=== PATIENT | male | born 1945 | race Caucasian/White ===

== ENCOUNTER 2017-07-05 15:09 | Observation (INO) | payer MEDICARE ==
[~2017-07-05] VITALS: Ht 175.3 cm; Wt 82.2 kg
[~2017-07-05 15:09] MED LIST: ALBU90OI INH; LISI20 PO; MAJOR-PREP HEMO57 G1 PR; METO50 PO; PANT40 PO; SACC250C PO
[2017-07-05 16:20] LABS: Calcium, Ionized (POC) 1.08 mmol/L (1.10-1.46); Chloride (POC) 89 mmol/L (98-108); Glucose (ISTAT POC) >700 mg/dL (70-99); Hemoglobin (POC) 12.2 g/dL (13.5-17.5); Potassium (POC) 5.1 mmol/L (3.5-5.5); Sodium (POC) 124 mmol/L (135-148); Total CO2 (POC) 24 mmol/L (21-32)
[2017-07-05 16:23] LABS: Source, Urine Clean Catch
[2017-07-05] MEDS ORDERED: METF500 PO (16:23)
[2017-07-05] MEDS ORDERED: CREON DR 24,001 EACH PO (16:23)
[2017-07-05 16:28] LABS: BASOPHILS ABSOLUTE AUTO 0.01 K/mm3 (0.00-0.23); BASOPHILS PERCENT AUTO 0 % (0-2); EOSINOPHILS ABSOLUTE AUTO 0.07 K/mm3 (0.00-0.68); EOSINOPHILS PERCENT AUTO 1 % (0-6); Hematocrit 34.3 % (37.0-53.0); Hemoglobin 12.2 g/dL (13.5-17.5); IMMATURE GRAN ABSOLUTE AUTO 0.02 K/mm3 (0.00-0.10); IMMATURE GRAN PERCENT AUTO 0 % (0-1); LYMPHOCYTES ABSOLUTE AUTO 1.32 K/mm3 (0.84-5.20); LYMPHOCYTES PERCENT AUTO 22 % (21-46); MONOCYTES ABSOLUTE AUTO 0.88 K/mm3 (0.16-1.47); MONOCYTES PERCENT AUTO 15 % (4-13); Mean Corpuscular HGB 30.8 pg (26.0-34.0); Mean Corpuscular HGB Conc 35.6 g/dL (31.5-36.5); Mean Corpuscular Volume 87 fL (80-100); Mean Platelet Volume 12.2 fL (9.1-12.4); NEUTROPHILS ABSOLUTE AUTO 3.69 K/mm3 (1.96-9.15); NEUTROPHILS PERCENT AUTO 62 % (41-73); Platelet Count 140 K/mm3 (150-400); RDW Coefficient Variation 13.2 % (11.7-14.2); RDW Standard Deviation 41.4 fL (35.1-46.3); Red Blood Cell Count 3.96 M/mm3 (4.30-5.90); White Blood Cell Count 5.99 K/mm3 (4.00-11.30)
[2017-07-05 16:29] LABS: Appearance, Urine Clear (Clear); Bilirubin, Urine Neg (Neg); Blood, Urine Neg (Neg); Color, Urine Yellow (P-Yellow); Glucose Qualitative, Urine 4+ (Neg); Ketones, Urine Neg (Neg); Leukocyte Esterase, Urine Neg (Neg); Nitrite, Urine Neg (Neg); Protein, Urine Neg (Neg); Urobilinogen, Urine NORM (Normal)
[2017-07-05 16:52] LABS: Magnesium, Blood 1.5 mg/dL (1.6-2.4)
[2017-07-05 17:08] LABS: Beta-hydroxybutyrate 5.2 mg/dL (0.2-2.8)
[2017-07-05 17:09] LABS: Alanine Aminotransfer (ALT/SGP 21 U/L (12-78); Albumin, Blood 3.6 g/dL (3.4-5.0); Albumin/Globulin Ratio 0.8 (0.8-1.8); Alk Phos 183 U/L (50-136); Anion Gap 7 mmol/L (6-16); Aspartate Aminotrans (AST/SGOT 18 U/L (12-37); Bilirubin, Total 0.5 mg/dL (0.1-1.0); Blood Urea Nitrogen 34 mg/dL (8-24); Bun/Creatinine Ratio 37.2 (12.0-20.0); CO2, Blood 26 mmol/L (21-32); Calcium, Blood 9.4 mg/dL (8.5-10.1); Chloride, Blood 90 mmol/L (98-108); Creatinine, Blood 0.92 mg/dL (0.60-1.20); Globulin, Blood 4.6 g/dL (2.2-4.0); Glomerular Filtration Rate >60 (60-); Glucose, Blood 756 mg/dL (70-99); Potassium, Blood 4.9 mmol/L (3.5-5.5); Sodium, Blood 123 mmol/L (136-145); Total Protein, Blood 8.2 g/dL (6.4-8.2)
[2017-07-05 19:26] LABS: Glucose, Blood 456 mg/dL (70-99)
[2017-07-05 23:54] LABS: Glucose, Blood 524 mg/dL (70-99)
[2017-07-06 06:26] LABS: Alanine Aminotransfer (ALT/SGP 20 U/L (12-78); Albumin, Blood 2.9 g/dL (3.4-5.0); Albumin/Globulin Ratio 0.7 (0.8-1.8); Alk Phos 139 U/L (50-136); Anion Gap 6 mmol/L (6-16); Aspartate Aminotrans (AST/SGOT 15 U/L (12-37); Bilirubin, Total 0.4 mg/dL (0.1-1.0); Blood Urea Nitrogen 27 mg/dL (8-24); Bun/Creatinine Ratio 34.4 (12.0-20.0); CO2, Blood 27 mmol/L (21-32); Calcium, Blood 8.7 mg/dL (8.5-10.1); Chloride, Blood 102 mmol/L (98-108); Creatinine, Blood 0.79 mg/dL (0.60-1.20); Glomerular Filtration Rate >60 (60-); Glucose, Blood 265 mg/dL (70-99); Potassium, Blood 3.9 mmol/L (3.5-5.5); Sodium, Blood 135 mmol/L (136-145); Total Protein, Blood 6.9 g/dL (6.4-8.2)
[2017-07-06] MEDS ORDERED: GABA100 PO (10:18)
[2017-07-06] MEDS ORDERED: GLIP10 PO (10:19)
[2017-07-06] MEDS ORDERED: BASAGLAR K100 UNIT/1 SC (10:20)
[2017-07-06] MEDS ORDERED: PRAVASTATIN SOD10 MG PO (10:20)
== END 2017-07-06 11:50 | disposition home or self-care (01) ==
LOC: ER 15:09 → MEDS 15:10 → ENPENDDIS 07-06 09:57 → MEDS 07-06 11:50
PROVIDERS: Emergency Medicine; Internal Medicine
DX: E11.65 Type 2 diabetes mellitus with hyperglycemia (principal); E87.1 Hypo-osmolality and hyponatremia; E83.42 Hypomagnesemia; I10 Essential (primary) hypertension; I48.91 Unspecified atrial fibrillation; K70.30 Alcoholic cirrhosis of liver without ascites; I47.1 Supraventricular tachycardia; Z98.890 Other specified postprocedural states; Z80.3 Family history of malignant neoplasm of breast; Z87.891 Personal history of nicotine dependence
CPT/HCPCS: 36415; 71046; 80047; 80053; 81003; 82010; 82947; 83036; 83735; 85014; 85025; 93005; 93010; 96365; 96366; 96372; 99285; G0378; J1650; J1815; J3475; J7030

== ENCOUNTER 2017-08-09 12:43 | Emergency (ER) | payer MEDICARE ==
[~2017-08-09] VITALS: Ht 177.8 cm; Wt 81.7 kg
[~2017-08-09 12:43] MED LIST changes: +BASAGLAR K100 UNIT/1 SC; +CREON DR 24,001 EACH PO; +GABA100 PO; +GLIP10 PO; +GLIP10ER PO; +LIDOCARE1 EACH TP; +METF500 PO; +NYST100000; +Norco 5-325 Ta1 EACH PO; +PRAVASTATIN SOD10 MG PO; +ROBITUSSIN COU237 ML PO; +Zithromax250 MG PO
[2017-08-09] MEDS ORDERED: Diflucan100 MG PO (14:18)
[2017-08-09] MEDS ORDERED: Norco 5-325 Ta1 EACH PO (14:18)
== END 2017-08-09 14:33 | disposition home or self-care (01) ==
LOC: ER 12:43
DX: J02.9 Acute pharyngitis, unspecified (principal); E11.9 Type 2 diabetes mellitus without complications; I48.91 Unspecified atrial fibrillation; I10 Essential (primary) hypertension; Z87.891 Personal history of nicotine dependence; Z79.899 Other long term (current) drug therapy; Z79.4 Long term (current) use of insulin
CPT/HCPCS: 99283

== ENCOUNTER → 2017-08-11 | Outpatient (CLI) | payer MEDICARE ==
[~2017-08-11] MED LIST changes: +DIPH50 PO; +Diflucan100 MG PO
[2017-08-11 16:18] LABS: BASOPHILS ABSOLUTE AUTO 0.03 K/mm3 (0.00-0.23); BASOPHILS PERCENT AUTO 0 % (0-2); EOSINOPHILS PERCENT AUTO 1 % (0-6); Hematocrit 35.5 % (37.0-53.0); IMMATURE GRAN ABSOLUTE AUTO 0.07 K/mm3 (0.00-0.10); IMMATURE GRAN PERCENT AUTO 1 % (0-1); LYMPHOCYTES ABSOLUTE AUTO 1.86 K/mm3 (0.84-5.20); LYMPHOCYTES PERCENT AUTO 25 % (21-46); MONOCYTES ABSOLUTE AUTO 1.04 K/mm3 (0.16-1.47); MONOCYTES PERCENT AUTO 14 % (4-13); Mean Corpuscular HGB 31.7 pg (26.0-34.0); Mean Corpuscular HGB Conc 33.8 g/dL (31.5-36.5); Mean Corpuscular Volume 94 fL (80-100); Mean Platelet Volume 10.6 fL (9.1-12.4); NEUTROPHILS ABSOLUTE AUTO 4.36 K/mm3 (1.96-9.15); NEUTROPHILS PERCENT AUTO 59 % (41-73); Platelet Count 213 K/mm3 (150-400); RDW Coefficient Variation 14.7 % (11.7-14.2); RDW Standard Deviation 50.6 fL (35.1-46.3); Red Blood Cell Count 3.79 M/mm3 (4.30-5.90); White Blood Cell Count 7.46 K/mm3 (4.00-11.30)
[2017-08-11 16:30] LABS: Alanine Aminotransfer (ALT/SGP 21 U/L (12-78); Albumin, Blood 3.3 g/dL (3.4-5.0); Albumin/Globulin Ratio 0.7 (0.8-1.8); Alk Phos 269 U/L (40-126); Anion Gap 7 mmol/L (6-16); Aspartate Aminotrans (AST/SGOT 27 U/L (12-37); Bilirubin, Total 0.6 mg/dL (0.1-1.0); Blood Urea Nitrogen 18 mg/dL (8-24); Bun/Creatinine Ratio 17.8 (12.0-20.0); CO2, Blood 29 mmol/L (21-32); Calcium, Blood 9.2 mg/dL (8.5-10.1); Chloride, Blood 103 mmol/L (98-108); Creatinine, Blood 1.01 mg/dL (0.60-1.20); Globulin, Blood 4.6 g/dL (2.2-4.0); Glomerular Filtration Rate >60 (60-); Glucose, Blood 131 mg/dL (70-99); Potassium, Blood 4.3 mmol/L (3.5-5.5); Sodium, Blood 139 mmol/L (136-145); Total Protein, Blood 7.9 g/dL (6.4-8.2)
== END | disposition home or self-care (01) ==
LOC: LAB EV 16:12 → LAB SHORT 16:12
PROVIDERS: Physician Assistant
DX: J18.1 Lobar pneumonia, unspecified organism (principal); J02.9 Acute pharyngitis, unspecified; R74.8 Abnormal levels of other serum enzymes
CPT/HCPCS: 80053; 82977; 85025; 87070

== ENCOUNTER 2017-08-13 16:14 | Emergency (ER) | payer MEDICARE ==
[~2017-08-13] VITALS: Ht 172.7 cm; Wt 79.4 kg
[~2017-08-13 16:14] MED LIST changes: -DIPH50 PO
[2017-08-13 16:47] LABS: BASOPHILS ABSOLUTE AUTO 0.02 K/mm3 (0.00-0.23); BASOPHILS PERCENT AUTO 0 % (0-2); EOSINOPHILS ABSOLUTE AUTO 0.09 K/mm3 (0.00-0.68); EOSINOPHILS PERCENT AUTO 1 % (0-6); Hemoglobin 11.3 g/dL (13.5-17.5); IMMATURE GRAN ABSOLUTE AUTO 0.07 K/mm3 (0.00-0.10); IMMATURE GRAN PERCENT AUTO 1 % (0-1); LYMPHOCYTES ABSOLUTE AUTO 1.83 K/mm3 (0.84-5.20); LYMPHOCYTES PERCENT AUTO 20 % (21-46); MONOCYTES ABSOLUTE AUTO 1.04 K/mm3 (0.16-1.47); MONOCYTES PERCENT AUTO 11 % (4-13); Mean Corpuscular HGB 31.1 pg (26.0-34.0); Mean Corpuscular HGB Conc 32.3 g/dL (31.5-36.5); Mean Corpuscular Volume 96 fL (80-100); Mean Platelet Volume 9.9 fL (9.1-12.4); NEUTROPHILS PERCENT AUTO 67 % (41-73); Platelet Count 239 K/mm3 (150-400); RDW Coefficient Variation 14.4 % (11.7-14.2); RDW Standard Deviation 51.3 fL (35.1-46.3); Red Blood Cell Count 3.63 M/mm3 (4.30-5.90); White Blood Cell Count 9.25 K/mm3 (4.00-11.30)
[2017-08-13 17:05] LABS: Anion Gap 10 mmol/L (6-16); Blood Urea Nitrogen 16 mg/dL (8-24); Bun/Creatinine Ratio 18.9 (12.0-20.0); CO2, Blood 25 mmol/L (21-32); Chloride, Blood 108 mmol/L (98-108); Creatinine, Blood 0.85 mg/dL (0.60-1.20); Glomerular Filtration Rate >60 (60-); Glucose, Blood 73 mg/dL (70-99); Potassium, Blood 3.7 mmol/L (3.5-5.5); Sodium, Blood 143 mmol/L (136-145)
[2017-08-13] MEDS ORDERED: DIPH50 PO (17:25)
== END 2017-08-13 17:41 | disposition home or self-care (01) ==
LOC: ER 16:14
PROVIDERS: Emergency Medicine
DX: J02.9 Acute pharyngitis, unspecified (principal); G25.89 Other specified extrapyramidal and movement disorders; E11.9 Type 2 diabetes mellitus without complications; I48.91 Unspecified atrial fibrillation; I10 Essential (primary) hypertension; Z87.891 Personal history of nicotine dependence; Z79.899 Other long term (current) drug therapy; Z79.4 Long term (current) use of insulin
CPT/HCPCS: 36415; 70491; 80048; 85025; 99284; Q9967

== ENCOUNTER 2017-09-12 22:36 | Inpatient (IN) | payer MEDICARE, OTHER, SELFPAY ==
[~2017-09-12] VITALS: Ht 177.8 cm; Wt 75.3 kg
[~2017-09-12 22:36] MED LIST changes: +DIPH50 PO; -NYST100000; +NYST100000 PO
[2017-09-13 00:39] LABS: BASOPHILS ABSOLUTE AUTO 0.03 K/mm3 (0.00-0.23); BASOPHILS PERCENT AUTO 1 % (0-2); EOSINOPHILS ABSOLUTE AUTO 0.09 K/mm3 (0.00-0.68); EOSINOPHILS PERCENT AUTO 1 % (0-6); Hematocrit 35.9 % (37.0-53.0); Hemoglobin 11.8 g/dL (13.5-17.5); IMMATURE GRAN PERCENT AUTO 0 % (0-1); LYMPHOCYTES PERCENT AUTO 30 % (21-46); MONOCYTES ABSOLUTE AUTO 0.75 K/mm3 (0.16-1.47); MONOCYTES PERCENT AUTO 12 % (4-13); Mean Corpuscular HGB 31.1 pg (26.0-34.0); Mean Corpuscular HGB Conc 32.9 g/dL (31.5-36.5); Mean Corpuscular Volume 95 fL (80-100); NEUTROPHILS ABSOLUTE AUTO 3.53 K/mm3 (1.96-9.15); NEUTROPHILS PERCENT AUTO 56 % (41-73); Platelet Count 129 K/mm3 (150-400); RDW Coefficient Variation 13.9 % (11.7-14.2); Red Blood Cell Count 3.79 M/mm3 (4.30-5.90)
[2017-09-13 01:02] LABS: Alanine Aminotransfer (ALT/SGP 22 U/L (12-78); Albumin, Blood 3.7 g/dL (3.4-5.0); Alk Phos 158 U/L (50-136); Anion Gap 8 mmol/L (6-16); Aspartate Aminotrans (AST/SGOT 28 U/L (12-37); Bilirubin, Total 0.5 mg/dL (0.1-1.0); Blood Urea Nitrogen 56 mg/dL (8-24); Bun/Creatinine Ratio 20.7 (12.0-20.0); CO2, Blood 26 mmol/L (21-32); Calcium, Blood 8.6 mg/dL (8.5-10.1); Chloride, Blood 106 mmol/L (98-108); Ethanol (Alcohol), Blood, Med <3 mg/dL; Globulin, Blood 3.6 g/dL (2.2-4.0); Glomerular Filtration Rate 25 (60-); Glucose, Blood 170 mg/dL (70-99); Potassium, Blood 4.6 mmol/L (3.5-5.5); Sodium, Blood 140 mmol/L (136-145); Total Protein, Blood 7.3 g/dL (6.4-8.2)
[2017-09-13] MEDS ORDERED: DIAZ5 PO (04:16)
[2017-09-13] MEDS ORDERED: DIAZ10 PO (04:17)
[2017-09-13] MEDS ORDERED: Lisinopril2.5 MG PO (04:19)
[2017-09-13] MEDS ORDERED: PANT40 PO (04:22)
[2017-09-13] MEDS ORDERED: Keppra100 MG/1 M PO (06:30)
[2017-09-13] MEDS ORDERED: MAGOXI400 PO (06:32)
[2017-09-13] MEDS ORDERED: TETRABENAZINE12.5 MG PO (11:45)
[2017-09-13] MEDS ORDERED: CREON DR 24,001 EACH PO (11:49)
[2017-09-13] MEDS ORDERED: MELA3 PO (11:52)
[2017-09-13] MEDS ORDERED: INSDET100 SC (11:54)
[2017-09-13 13:37] LABS: Hematocrit 38.5 % (37.0-53.0); Hemoglobin 12.6 g/dL (13.5-17.5); Mean Corpuscular HGB 30.4 pg (26.0-34.0); Mean Corpuscular HGB Conc 32.7 g/dL (31.5-36.5); Mean Corpuscular Volume 93 fL (80-100); Mean Platelet Volume 11.8 fL (9.1-12.4); Platelet Count 145 K/mm3 (150-400); RDW Coefficient Variation 13.9 % (11.7-14.2); RDW Standard Deviation 47.5 fL (35.1-46.3); Red Blood Cell Count 4.14 M/mm3 (4.30-5.90); White Blood Cell Count 4.64 K/mm3 (4.00-11.30)
[2017-09-13 13:53] LABS: Albumin, Blood 3.8 g/dL (3.4-5.0); Bilirubin, Total 0.6 mg/dL (0.1-1.0); Calcium, Blood 9.3 mg/dL (8.5-10.1); Creatinine, Blood 1.96 mg/dL (0.60-1.20); Globulin, Blood 3.9 g/dL (2.2-4.0); Total Protein, Blood 7.7 g/dL (6.4-8.2)
[2017-09-13 19:16] LABS: Bilirubin, Urine Neg (Neg); Blood, Urine Neg (Neg); Glucose Qualitative, Urine Neg (Neg); Ketones, Urine Neg (Neg); Leukocyte Esterase, Urine 1+ (Neg); Nitrite, Urine Neg (Neg); Protein, Urine Neg (Neg); Urobilinogen, Urine NORM (Normal)
[2017-09-13 19:26] LABS: Appearance, Urine Clear (Clear); Color, Urine Yellow (P-Yellow)
[2017-09-13 19:27] LABS: Hyaline Casts 0-2 /lpf (0-2)
[2017-09-13 19:28] LABS: Bacteria Not Seen /hpf; Red Blood Cells, Urine Not Seen /hpf (0-2); Squamous Epithelial Cells Few /hpf (Few)
[2017-09-13 19:35] LABS: U Amphetamine Screen Not Detected; U Barbituate Screen Not Detected; U Benzodiazapine Screen DETECTED; U Buprenorphine Screen Not Detected; U Cannabinoids Screen Not Detected; U Cocaine Screen Not Detected; U Methadone Screen Not Detected; U Methamphetamine Screen Not Detected; U Opiates Screen Not Detected; U Oxycodone Screen Not Detected; U Phencyclidine Screen Not Detected; U Propoxyphene Screen Not Detected
[2017-09-14 04:00] LABS: Bun/Creatinine Ratio 28.7 (12.0-20.0); Calcium, Blood 8.7 mg/dL (8.5-10.1); Creatinine, Blood 1.5 mg/dL (0.60-1.20); Potassium, Blood 5.2 mmol/L (3.5-5.5)
[2017-09-15 05:04] LABS: Anion Gap 8 mmol/L (6-16); Blood Urea Nitrogen 32 mg/dL (8-24); Bun/Creatinine Ratio 28.3 (12.0-20.0); CO2, Blood 24 mmol/L (21-32); CPK Creatine Kinase 185 U/L (39-308); Calcium, Blood 8.9 mg/dL (8.5-10.1); Chloride, Blood 111 mmol/L (98-108); Creatinine, Blood 1.13 mg/dL (0.60-1.20); Glomerular Filtration Rate >60 (60-); Glucose, Blood 124 mg/dL (70-99); Potassium, Blood 4.5 mmol/L (3.5-5.5); Sodium, Blood 143 mmol/L (136-145)
[2017-09-16 04:24] LABS: Anion Gap 7 mmol/L (6-16); Blood Urea Nitrogen 17 mg/dL (8-24); Bun/Creatinine Ratio 17.8 (12.0-20.0); CO2, Blood 24 mmol/L (21-32); CPK Creatine Kinase 187 U/L (39-308); Calcium, Blood 8.9 mg/dL (8.5-10.1); Chloride, Blood 110 mmol/L (98-108); Creatinine, Blood 0.96 mg/dL (0.60-1.20); Glomerular Filtration Rate >60 (60-); Glucose, Blood 176 mg/dL (70-99); Potassium, Blood 4.3 mmol/L (3.5-5.5); Sodium, Blood 141 mmol/L (136-145)
[2017-09-18 10:13] LABS: Alanine Aminotransfer (ALT/SGP 19 U/L (12-78); Albumin/Globulin Ratio 0.8 (0.8-1.8); Alk Phos 166 U/L (50-136); Anion Gap 7 mmol/L (6-16); Aspartate Aminotrans (AST/SGOT 22 U/L (12-37); Bilirubin, Total 0.4 mg/dL (0.1-1.0); Blood Urea Nitrogen 7 mg/dL (8-24); Bun/Creatinine Ratio 9.2 (12.0-20.0); CO2, Blood 27 mmol/L (21-32); Calcium, Blood 8.5 mg/dL (8.5-10.1); Chloride, Blood 110 mmol/L (98-108); Creatinine, Blood 0.76 mg/dL (0.60-1.20); Globulin, Blood 3.8 g/dL (2.2-4.0); Glomerular Filtration Rate >60 (60-); Glucose, Blood 165 mg/dL (70-99); Magnesium, Blood 1.7 mg/dL (1.6-2.4); Potassium, Blood 3.8 mmol/L (3.5-5.5); Sodium, Blood 144 mmol/L (136-145); Total Protein, Blood 6.8 g/dL (6.4-8.2)
[2017-09-19] MEDS ORDERED: INSULANPEN SC (12:59)
[2017-09-19] MEDS ORDERED: DOCU100 PO (13:03)
[2017-09-19] MEDS ORDERED: HUMALOG KW200 UNIT/1 SC (13:04)
[2017-09-19] MEDS ORDERED: AUSTEDO6 MG PO (13:05)
[2017-09-19] MEDS ORDERED: Seroquel50 MG PO (13:06)
[2017-09-19] MEDS ORDERED: QUET25 PO (13:06)
[2017-09-23 05:24] LABS: Hemoglobin 11.1 g/dL (13.5-17.5); Mean Corpuscular HGB 30.7 pg (26.0-34.0); Mean Corpuscular HGB Conc 32.6 g/dL (31.5-36.5); Mean Corpuscular Volume 94 fL (80-100); Mean Platelet Volume 11.3 fL (9.1-12.4); Platelet Count 102 K/mm3 (150-400); RDW Coefficient Variation 13.6 % (11.7-14.2); RDW Standard Deviation 47.3 fL (35.1-46.3); Red Blood Cell Count 3.61 M/mm3 (4.30-5.90); White Blood Cell Count 4.39 K/mm3 (4.00-11.30)
[2017-09-23 05:58] LABS: Anion Gap 7 mmol/L (6-16); Blood Urea Nitrogen 20 mg/dL (8-24); Bun/Creatinine Ratio 22.8 (12.0-20.0); CO2, Blood 29 mmol/L (21-32); Calcium, Blood 8.6 mg/dL (8.5-10.1); Chloride, Blood 109 mmol/L (98-108); Creatinine, Blood 0.88 mg/dL (0.60-1.20); Glomerular Filtration Rate >60 (60-); Glucose, Blood 83 mg/dL (70-99); Potassium, Blood 3.7 mmol/L (3.5-5.5); Sodium, Blood 145 mmol/L (136-145)
[2017-09-26 05:48] LABS: Anion Gap 7 mmol/L (6-16); Blood Urea Nitrogen 19 mg/dL (8-24); Bun/Creatinine Ratio 21.8 (12.0-20.0); CO2, Blood 26 mmol/L (21-32); Calcium, Blood 8.3 mg/dL (8.5-10.1); Chloride, Blood 108 mmol/L (98-108); Creatinine, Blood 0.87 mg/dL (0.60-1.20); Glomerular Filtration Rate >60 (60-); Glucose, Blood 132 mg/dL (70-99); Potassium, Blood 4.3 mmol/L (3.5-5.5); Sodium, Blood 141 mmol/L (136-145)
[2017-09-26] MEDS ORDERED: Aspirin EC81 MG PO (12:16)
[2017-09-26] MEDS ORDERED: QUET25 PO ×2 (12:28→13:21)
== END 2017-09-26 14:30 | disposition home health service (06) | DRG 56 ==
LOC: ER 22:36 → MEDS 09-13 01:41 → ICUE 09-13 01:41 → MEDS 09-13 05:54 → ICUE 09-14 01:24 → MEDS 09-16 19:35 → EDPENDDIS 09-19 10:50 → ENPENDDIS 09-19 10:50 → MEDS 09-26 14:30
PROVIDERS: Emergency Medicine; Internal Medicine
DX: G25.5 Other chorea (principal); G93.41 Metabolic encephalopathy; N17.9 Acute kidney failure, unspecified; K70.30 Alcoholic cirrhosis of liver without ascites; I10 Essential (primary) hypertension; Z78.1 Physical restraint status; E11.65 Type 2 diabetes mellitus with hyperglycemia; F10.20 Alcohol dependence, uncomplicated; I48.2 Chronic atrial fibrillation; Z91.14 Patient's other noncompliance with medication regimen
CPT/HCPCS: 36415; 51703; 80048; 80053; 81001; 82390; 82550; 82947; 83735; 84443; 85025; 85027; 87086; 96360; 96361; 97110; 97116; 97161; 99285; G0480; G8978; G8979; J1630; J1650; J2060; J3411; J7030; J7042

== ENCOUNTER 2017-10-09 15:31 | Emergency (ER) | payer MEDICARE, SELFPAY ==
[~2017-10-09] VITALS: Ht 177.8 cm; Wt 78.0 kg
[~2017-10-09 15:31] MED LIST changes: +AUSTEDO6 MG PO; +Aspirin EC81 MG PO; +DIAZ10 PO; +DIAZ5 PO; +DOCU100 PO; +HUMALOG KW200 UNIT/1 SC; +INSDET100 SC; +INSULANPEN SC; +Keppra100 MG/1 M PO; +Lisinopril2.5 MG PO; +MAGOXI400 PO; +MELA3 PO; +QUET25 PO; +Seroquel50 MG PO; +TETRABENAZINE12.5 MG PO
[2017-10-09 16:35] LABS: Calcium, Ionized (POC) 1.07 mmol/L (1.10-1.46); Chloride (POC) 102 mmol/L (98-108); Creatinine (POC) 1.5 mg/dL (0.8-1.3); Glucose (ISTAT POC) 115 mg/dL (70-99); Hemoglobin (POC) 12.2 g/dL (13.5-17.5); Sodium (POC) 144 mmol/L (135-148); Total CO2 (POC) 30 mmol/L (21-32)
== END 2017-10-09 16:48 | disposition home or self-care (01) ==
LOC: ER 15:31
PROVIDERS: Emergency Medicine
DX: S01.01XA Laceration without foreign body of scalp, initial encounter (principal); W18.30XA Fall on same level, unspecified, initial encounter; F90.9 Attention-deficit hyperactivity disorder, unspecified type; Z79.899 Other long term (current) drug therapy; Z79.4 Long term (current) use of insulin; Z79.82 Long term (current) use of aspirin; E11.9 Type 2 diabetes mellitus without complications; Z87.891 Personal history of nicotine dependence
CPT/HCPCS: 80047; 85014; 99283

== ENCOUNTER 2017-10-11 20:16 | Emergency (ER) | payer MEDICARE, OTHER, SELFPAY ==
[~2017-10-11] VITALS: Ht 182.9 cm; Wt 74.8 kg
[2017-10-11 22:57] LABS: Source, Urine Clean Catch
[2017-10-11 23:00] LABS: BASOPHILS ABSOLUTE AUTO 0.02 K/mm3 (0.00-0.23); BASOPHILS PERCENT AUTO 0 % (0-2); EOSINOPHILS ABSOLUTE AUTO 0.01 K/mm3 (0.00-0.68); EOSINOPHILS PERCENT AUTO 0 % (0-6); Hematocrit 34.1 % (37.0-53.0); Hemoglobin 11.3 g/dL (13.5-17.5); IMMATURE GRAN ABSOLUTE AUTO 0.03 K/mm3 (0.00-0.10); IMMATURE GRAN PERCENT AUTO 0 % (0-1); LYMPHOCYTES ABSOLUTE AUTO 1.74 K/mm3 (0.84-5.20); LYMPHOCYTES PERCENT AUTO 23 % (21-46); MONOCYTES ABSOLUTE AUTO 0.45 K/mm3 (0.16-1.47); MONOCYTES PERCENT AUTO 6 % (4-13); Mean Corpuscular HGB Conc 33.1 g/dL (31.5-36.5); Mean Corpuscular Volume 94 fL (80-100); Mean Platelet Volume 10.8 fL (9.1-12.4); NEUTROPHILS ABSOLUTE AUTO 5.37 K/mm3 (1.96-9.15); NEUTROPHILS PERCENT AUTO 71 % (41-73); Platelet Count 146 K/mm3 (150-400); RDW Coefficient Variation 14.7 % (11.7-14.2); RDW Standard Deviation 48.5 fL (35.1-46.3); Red Blood Cell Count 3.64 M/mm3 (4.30-5.90); White Blood Cell Count 7.62 K/mm3 (4.00-11.30)
[2017-10-11 23:01] LABS: Bilirubin, Urine Neg (Neg); Blood, Urine Neg (Neg); Glucose Qualitative, Urine Neg (Neg); Ketones, Urine Neg (Neg); Leukocyte Esterase, Urine Neg (Neg); Nitrite, Urine Neg (Neg); Protein, Urine Neg (Neg); Specific Gravity, Urine 1.005 (1.003-1.022); Urobilinogen, Urine NORM (Normal)
[2017-10-11 23:04] LABS: Appearance, Urine Clear (Clear); Color, Urine Yellow (P-Yellow)
[2017-10-11 23:13] LABS: Alanine Aminotransfer (ALT/SGP 27 U/L (12-78); Albumin/Globulin Ratio 0.8 (0.8-1.8); Alk Phos 253 U/L (50-136); Anion Gap 11 mmol/L (6-16); Aspartate Aminotrans (AST/SGOT 50 U/L (12-37); Bilirubin, Total 0.3 mg/dL (0.1-1.0); Blood Urea Nitrogen 12 mg/dL (8-24); Bun/Creatinine Ratio 12.7 (12.0-20.0); CO2, Blood 26 mmol/L (21-32); Calcium, Blood 7.9 mg/dL (8.5-10.1); Chloride, Blood 106 mmol/L (98-108); Creatinine, Blood 0.95 mg/dL (0.60-1.20); Globulin, Blood 3.7 g/dL (2.2-4.0); Glomerular Filtration Rate >60 (60-); Glucose, Blood 115 mg/dL (70-99); Potassium, Blood 3.8 mmol/L (3.5-5.5); Sodium, Blood 143 mmol/L (136-145); Total Protein, Blood 6.7 g/dL (6.4-8.2)
[2017-10-11] MEDS ORDERED: AUSTEDO6 MG PO (23:18)
== END 2017-10-12 00:15 | disposition home or self-care (01) ==
LOC: ER 20:16
PROVIDERS: Emergency Medicine
DX: S00.01XA Abrasion of scalp, initial encounter (principal); E11.9 Type 2 diabetes mellitus without complications; I48.91 Unspecified atrial fibrillation; I10 Essential (primary) hypertension; Z79.899 Other long term (current) drug therapy; Z79.4 Long term (current) use of insulin; Z79.82 Long term (current) use of aspirin; Z87.891 Personal history of nicotine dependence; W19.XXXA Unspecified fall, initial encounter
CPT/HCPCS: 36415; 70450; 80053; 81003; 82140; 85025; 93005; 93010; 99285-25

== ENCOUNTER 2021-02-17 09:50 | Inpatient (IN) | payer MEDICARE ==
[~2021-02-17] VITALS: Ht 172.7 cm; Wt 100.3 kg
[~2021-02-17 09:50] MED LIST changes: +HUMALOG KW100 UNIT/1 SC; -HUMALOG KW200 UNIT/1 SC
[2021-02-17 10:41] LABS: BASOPHILS PERCENT AUTO 0 % (0-2); EOSINOPHILS ABSOLUTE AUTO 0.02 K/mm3 (0.00-0.68); EOSINOPHILS PERCENT AUTO 1 % (0-6); Hemoglobin 13.9 g/dL (13.5-17.5); IMMATURE GRAN ABSOLUTE AUTO 0.03 K/mm3 (0.00-0.10); IMMATURE GRAN PERCENT AUTO 1 % (0-1); LYMPHOCYTES ABSOLUTE AUTO 0.55 K/mm3 (0.84-5.20); LYMPHOCYTES PERCENT AUTO 19 % (21-46); MONOCYTES ABSOLUTE AUTO 0.53 K/mm3 (0.16-1.47); MONOCYTES PERCENT AUTO 19 % (4-13); Mean Corpuscular HGB Conc 34.8 g/dL (31.5-36.5); Mean Corpuscular Volume 92 fL (80-100); Mean Platelet Volume 11.2 fL (9.1-12.4); NEUTROPHILS PERCENT AUTO 60 % (41-73); RDW Coefficient Variation 14.4 % (11.7-14.2); RDW Standard Deviation 49.2 fL (35.1-46.3); Red Blood Cell Count 4.35 M/mm3 (4.30-5.90); White Blood Cell Count 2.83 K/mm3 (4.00-11.30)
[2021-02-17 10:44] LABS: Platelet Count 92 K/mm3 (150-400)
[2021-02-17 11:02] LABS: Alanine Aminotransfer (ALT/SGP 28 U/L (12-78); Albumin, Blood 2.6 g/dL (3.4-5.0); Albumin/Globulin Ratio 0.7 (0.8-1.8); Alk Phos 147 U/L (50-136); Anion Gap 11 mmol/L (6-16); Aspartate Aminotrans (AST/SGOT 50 U/L (12-37); Bilirubin, Total 1.9 mg/dL (0.1-1.0); Blood Urea Nitrogen 12 mg/dL (8-24); Bun/Creatinine Ratio 12.1 (12.0-20.0); CO2, Blood 30 mmol/L (21-32); Chloride, Blood 95 mmol/L (98-108); Globulin, Blood 3.7 g/dL (2.2-4.0); Glomerular Filtration Rate >60 (60-); Glucose, Blood 99 mg/dL (70-99); Potassium, Blood 3.1 mmol/L (3.5-5.5); Sodium, Blood 136 mmol/L (136-145); Total Protein, Blood 6.3 g/dL (6.4-8.2)
[2021-02-17 11:34] LABS: Source, Urine Catheter
[2021-02-17 11:43] LABS: Appearance, Urine Clear (Clear); Blood, Urine 3+ (Neg); Color, Urine Amber (P-Yellow); Glucose Qualitative, Urine Neg (Neg); Ketones, Urine 2+ (Neg); Leukocyte Esterase, Urine 1+ (Neg); Nitrite, Urine Pos (Neg); Protein, Urine 4+ (Neg); Urobilinogen, Urine 4+ (Normal)
[2021-02-17 11:48] LABS: Adenovirus Not Detected (NOT DETECT); Coronavirus 229E Not Detected (NOT DETECT); Coronavirus HKU1 Not Detected (NOT DETECT); Coronavirus NL63 Not Detected (NOT DETECT); Coronavirus OC43 Not Detected (NOT DETECT); SARS-Cov-2 (COVID-19), BioFire Detected (NOT DETECT)
[2021-02-17 11:50] LABS: Bordetella pertussis Not Detected (NOT DETECT); Chlamydophila pneumoniae Not Detected (NOT DETECT); Human Metapneumovirus Not Detected (NOT DETECT); Human Rhinovirus/Enterovirus Not Detected (NOT DETECT); Influenza A/2009-H1 Not Detected (NOT DETECT); Influenza A/H1 Not Detected (NOT DETECT); Influenza A/H3 Not Detected (NOT DETECT); Influenza B Not Detected (NOT DETECT); Mycoplasma pneumoniae Not Detected (NOT DETECT); Parainfluenza Virus 1 Not Detected (NOT DETECT); Parainfluenza Virus 2 Not Detected (NOT DETECT); Parainfluenza Virus 3 Not Detected (NOT DETECT); Parainfluenza Virus 4 Not Detected (NOT DETECT); Respiratory Syncytial Virus Not Detected (NOT DETECT)
[2021-02-17 11:54] LABS: Bilirubin, Urine 2+ (Neg)
[2021-02-17 11:58] LABS: Amorphous Mod (0-Heavy); Bacteria Few /hpf; Mucus Heavy (0-Heavy); Squamous Epithelial Cells Mod /hpf (Few)
[2021-02-17] MEDS ORDERED: ALBU90OI6 INH (12:36)
[2021-02-17] MEDS ORDERED: Serevent Disku50 MCG IH (12:36)
[2021-02-17] MEDS ORDERED: TAMS.4ER PO (12:36)
[2021-02-17] MEDS ORDERED: INGREZZA40 MG PO (12:37)
--- NOTE | 2021-02-17 15:30 | NUR ---
RECEIVED PT FROM ER VIA [facility]. PT IS AWAKE AND ALERT-ORIENTED TO PERSON AND PLACE. FOLLOWS COMMANDS AND COOPERATIVE WITH CARE. PT IS POOR HISTORIAN. PT SPOUSE REPORTS THAT PT DRANK HIS LAST DRINK 3-4 DAYS AGO. HE NORMAL DRINKS 4-5 SHOTS OF WHISKEY/DAY. UPPER EXTREMITIES NOTED TO BE TREMULOUS, BUT NO HALLUCINATIONS NOTED. PT DENIES PAIN. TEMP 99.9. ECG SHOWS ST WITH FREQUENT PAC/PVC'S AND RUNS OF VT. MAGNESIUM 2 GRAM IVP INFUSING. LUNGS TIGHT AND WHEEZY THROUGH OUT. HARSH, NON PRODUCTIVE COUGH NOTED. SATS>90% ON RA. PT SOB AND TACHYPNEIC WITH MINIMAL EXERTION. PT REPORTS GENERALIZED WEAKNESS, DIARRHEA, AND POOR APPETITE FOR THE LAST 10 DAYS. PT IS INCONTINENT OF URINE AND STOOL. CHANTAL AREA IS EXTREMELY RED AND EXCORTIATED. CHANTAL CARE AND ATTENDS CHANGE COMPLETED. CALAZIME APPLIED TO AFFECTED AREA. WILL CONTINUE TO MONITOR FOR ETOH WITHDRAWL.
--- NOTE | 2021-02-17 17:20 | NUR ---
PT REMAINS HYPERTENSIVE-SEE FLOWSHEET. DR. SMITH UPDATED. MADE AWARE OF CONCERN THAT PT IS AT RISK FOR ASPIRATION- PT MADE NPO, CBG EVERY 6 HOURS. ORDER GIVEN FOR HYDRALAZINE PRN. HYDRALAZINE 10 MG IVP X 1 GIVEN.
--- NOTE | 2021-02-17 19:00 | NUR ---
LEFT ARM IV INFILTRATED. BP REMAINS ELEVATED APRESOLINE WAS GIVEN VIA LEFT ARM IV. EXTENDED DWELL CATHETER PLACED TO RIGHT UPPER ARM. PT CIWA 16-PT MORE TREMULOUS TO BOTH UPPER EXTREMITIES-ESPECIALLY THE LEFT. HOSPITALIST NOTIFIED OF CIWA 16-ORDERS GIVEN FOR ATIVAN. MAGNESIUM LEVEL SENT. PT INCONTINENT OF URINE CHANTAL CARE AND PARTIAL LINEN CHANGE COMPLETED. TEMP 102.9-REPORT GIVEN TO LAN BECKHAM.
--- NOTE | 2021-02-17 20:49 | NUR ---
ASSUMED CARE OF PT AT 1915. REPORT RECEIVED AT BEDSIDE. PT PRESENTS IN BED. ALERT AND ORIENTED. VERY TREMOROUS. INCONTINENT TO URINE. WAS NOT ABLE TO TELL THAT HE HAD VOIDED. HAVE MEDICATED PT WITH 2 MG ATIVAN. WAS 102.9 PER TEMPORAL SCAN. ADMINISTERED TYLENOL. PT HAS SOME COUGH WITH SWALLOW. CALL MADE TO DR FERRELL CONCERNING TEMP. HEART RATE ELEVATION AND INCREASE IN BLOOD PRESSURES. DID OBTAIN ONE SET OF BLOOD CULTURES FROM [facility], AND LACTIC ACID. LAB PERFORMS VENIPUNCTURE FOR SECOND SET. PT'S TEMPERATURE HAS DECREASED TO 101.4. WILL CONTINUE TO MONITOR. WILL REVIEW CHART AND PLAN OF CARE FOR THIS PT.
[2021-02-18 05:44] LABS: BASOPHILS ABSOLUTE AUTO 0.01 K/mm3 (0.00-0.23); BASOPHILS PERCENT AUTO 0 % (0-2); EOSINOPHILS ABSOLUTE AUTO 0.01 K/mm3 (0.00-0.68); EOSINOPHILS PERCENT AUTO 0 % (0-6); Hematocrit 41.3 % (37.0-53.0); Hemoglobin 14.3 g/dL (13.5-17.5); IMMATURE GRAN ABSOLUTE AUTO 0.04 K/mm3 (0.00-0.10); IMMATURE GRAN PERCENT AUTO 1 % (0-1); LYMPHOCYTES ABSOLUTE AUTO 0.97 K/mm3 (0.84-5.20); LYMPHOCYTES PERCENT AUTO 29 % (21-46); MONOCYTES ABSOLUTE AUTO 0.47 K/mm3 (0.16-1.47); MONOCYTES PERCENT AUTO 14 % (4-13); Mean Corpuscular HGB 32.1 pg (26.0-34.0); Mean Corpuscular HGB Conc 34.6 g/dL (31.5-36.5); Mean Corpuscular Volume 93 fL (80-100); Mean Platelet Volume 12.2 fL (9.1-12.4); NEUTROPHILS ABSOLUTE AUTO 1.83 K/mm3 (1.96-9.15); NEUTROPHILS PERCENT AUTO 55 % (41-73); Platelet Count 90 K/mm3 (150-400); RDW Coefficient Variation 14.6 % (11.7-14.2); RDW Standard Deviation 50.1 fL (35.1-46.3); Red Blood Cell Count 4.45 M/mm3 (4.30-5.90); White Blood Cell Count 3.33 K/mm3 (4.00-11.30)
[2021-02-18 06:13] LABS: Alanine Aminotransfer (ALT/SGP 27 U/L (12-78); Albumin, Blood 2.6 g/dL (3.4-5.0); Albumin/Globulin Ratio 0.7 (0.8-1.8); Alk Phos 152 U/L (50-136); Anion Gap 9 mmol/L (6-16); Aspartate Aminotrans (AST/SGOT 49 U/L (12-37); Blood Urea Nitrogen 15 mg/dL (8-24); Bun/Creatinine Ratio 14.4 (12.0-20.0); CO2, Blood 29 mmol/L (21-32); Chloride, Blood 95 mmol/L (98-108); Creatinine, Blood 1.04 mg/dL (0.60-1.20); Globulin, Blood 3.9 g/dL (2.2-4.0); Glomerular Filtration Rate >60 (60-); Glucose, Blood 174 mg/dL (70-99); Magnesium, Blood 2.5 mg/dL (1.6-2.4); Potassium, Blood 3.1 mmol/L (3.5-5.5); Sodium, Blood 133 mmol/L (136-145); Total Protein, Blood 6.5 g/dL (6.4-8.2)
--- NOTE | 2021-02-18 06:30 | NUR ---
PT HAS BEEN ABLE TO SLEEP SOME THIS NIGHT. DOES CONTINUE WITH TREMOROUS MOVEMENTS. HAS BEEN MEDICATED WITH HYDRALAZINE FOR INCREASING BLOOD PRESSURE. OF NOTE: BLOOD PRESSURES HAVE BEEN TRENDING UPWARDS AGAIN. PT HAS LOW GRADE FEVER OF 100.1 THIS MORNING. MAX HAD BEEN 102.9 WITH TEMP NADAR AT 99.0. PT HAS BEEN INCONTINENT TO URINE. DID NOT CALL FOR ASSIST. WILL REVIEW CHART AND PLAN OF CARE FOR THIS PT.
--- NOTE | 2021-02-18 07:57 | NUR ---
PATIENT RESTING IN ROOM, DOES NOT APPEAR IN DISTRESS, AWKES TO STIMULUS AND THEN BACK TO SLEEP EASILY, SBP 180S, MEDICATED WITH PRN HYDRALAZINE, PATIENT SNORING LOUDLY, TEMP 101.0, ROOM, COLD, REMOVED BLANKETS, WCL
--- NOTE | 2021-02-18 11:38 | NUR ---
ST SWALLOW EAL DONE, NO STRAWS MECHANICAL SOFT, THIN LIQUIDS, MEDICATIONS WHOLE WITH APPLESAUCE
--- NOTE | 2021-02-18 14:12 | NUR ---
AT BEDSIDE, HELPFUL WITH CARE
--- NOTE | 2021-02-18 18:25 | NUR ---
PATIENT AWAKE, ALERT AND ORIENTED X3, MINIMAL INTERACTION, HAND TREMORS AT NORMAL BASELINE PER PATIENT, SBP 150-190S HAND TREMORS WHEN BP TAKEN, HEART RATE 90-130, VT, NSR, PVC'S AND PAC'S. DIET MECHANICAL SOFT, ASPIRATION PRECAUTIONS, ASSIST WITH FEEDINGD DRINKING, DENIES N/V. INCONTINENT URINE, ATTENDS ON, CHANTAL AREA SENSITIVE AND EXCORIATED, K+ 3.1 TODAY REPLACED, WILL RELAY TO PM RN, CARLOS
[2021-02-18 21:20] LABS: Bun/Creatinine Ratio 17.6 (12.0-20.0); Calcium, Blood 7.1 mg/dL (8.5-10.1); Creatinine, Blood 1.25 mg/dL (0.60-1.20); Magnesium, Blood 2.4 mg/dL (1.6-2.4); Potassium, Blood 3.2 mmol/L (3.5-5.5)
[2021-02-19 05:51] LABS: Hematocrit 36.6 % (37.0-53.0); Hemoglobin 12.7 g/dL (13.5-17.5); Mean Corpuscular HGB 32.3 pg (26.0-34.0); Mean Corpuscular HGB Conc 34.7 g/dL (31.5-36.5); Mean Corpuscular Volume 93 fL (80-100); Mean Platelet Volume 12.2 fL (9.1-12.4); Platelet Count 71 K/mm3 (150-400); RDW Coefficient Variation 14.5 % (11.7-14.2); RDW Standard Deviation 49.7 fL (35.1-46.3); Red Blood Cell Count 3.93 M/mm3 (4.30-5.90); White Blood Cell Count 2.38 K/mm3 (4.00-11.30)
--- NOTE | 2021-02-19 06:17 | NUR ---
END OF SHIFT SUMMARY: Neuro: pt AOx3 (self, place and situation), cooperative and pleasant. pt does continually shake at baseline d/t tardive dyskinesia. does not complain of pain but does grimaces and moans during repositioning. all extremities can move to commands but very weak and stiff. Resp: Pt remains on 2L nasal cannula. tolerating good. starting to develop barking nonproductive cough, offered suction but denied it. bilateral lung sounds coarse with slight wheezing. Cardiac: pt does have a fever (off/on), gave PRN tylenol which seemed to help. pt also hypertensive, treated with labetolol 10mg twice throughout the night and treated with labetolol 10mg twice throughout the night. generalized edema. GI/: incontinent, has a brief on, perineal, extensive tone care done. brief changes with Q2 hour turns. Skin scaly and fragile. no BM overnight. also attemtped to place condom catheter but condom catheter keeps falling off.
[2021-02-19 06:59] LABS: Anion Gap 8 mmol/L (6-16); Blood Urea Nitrogen 19 mg/dL (8-24); Bun/Creatinine Ratio 18.1 (12.0-20.0); CO2, Blood 27 mmol/L (21-32); Calcium, Blood 6.8 mg/dL (8.5-10.1); Chloride, Blood 99 mmol/L (98-108); Creatinine, Blood 1.05 mg/dL (0.60-1.20); Glomerular Filtration Rate >60 (60-); Glucose, Blood 161 mg/dL (70-99); Potassium, Blood 3.5 mmol/L (3.5-5.5); Sodium, Blood 134 mmol/L (136-145)
--- NOTE | 2021-02-19 08:36 | NUR ---
DR PRESLEY ROUNDING ON PATIENT NOW
--- NOTE | 2021-02-19 13:41 | NUR ---
PT EVAL IN ROOM, PATIENT VERY WEAK, GOAL 30 MINUTES IN CHAIR THREE TIMES A DAY, CORRIDINATE WITH PT WHEN ATTEMPTING PER PT RECOMMENDATION
--- NOTE | 2021-02-19 14:51 | NUR ---
at bedside, reports patient has not walked freely in the house for a month has been declining ambulation and activity. ls coarse and rhonchi, strong cough, clears some congestion, minimal production from cough
--- NOTE | 2021-02-19 16:01 | NUR ---
REPORTED TO DR PRESLEY, REQUEST FOR DUONEBS, LABS AND PRELIMINIARIES, SHALLOW, INCREASED RESPIRATIONS, INCREASED WEAKNESS. CXRAY, ANTIBIOTIC, DUO NEB, AND LABS ORDERED
--- NOTE | 2021-02-19 17:56 | NUR ---
REPORTED TEMP 103.[address] PRESLEY, ORDER TO PLACE PATEL, TEMP NOW 101.1, ICE PACKS TO ARMS AND GROIN, MEDICATED WITH TYLENOL, PATIENT REFUSED PATEL CATHETER PLACEMENT, WILL RELAY TO PM LAN
--- NOTE | 2021-02-19 17:58 | NUR ---
PATIENT ALERT AND ORIENTED X3 VERY FORGETFUL, OBJECTIVE TO INTERVENTIONS AT TIMES, ASSIST WITH FEEDING AND MONITOR SWALLOW, TEMP 103.5 NOW 101.1, LS COARSE RHONCHI, ENCOURAGED COUGH, SCANT SPUTMUN, LIGHT BROWN, 2L NC, CXRAY WORSENED. SBP 140-170, HEART RATE ST 100-130, DENIES CP. INCONTINENT OF BM AND URINE, EXCORIATED SCROTUMN AND CHANTAL, ORDER FOR PATEL CATHETER, PATIENT REFUSED, WILL RELAY TO PM RN, WCTM
[2021-02-20 06:35] LABS: Hemoglobin 12.7 g/dL (13.5-17.5); Mean Corpuscular HGB 31.9 pg (26.0-34.0); Mean Corpuscular HGB Conc 34.3 g/dL (31.5-36.5); Mean Corpuscular Volume 93 fL (80-100); Mean Platelet Volume 12.5 fL (9.1-12.4); Platelet Count 78 K/mm3 (150-400); RDW Coefficient Variation 14.4 % (11.7-14.2); RDW Standard Deviation 49.8 fL (35.1-46.3); Red Blood Cell Count 3.98 M/mm3 (4.30-5.90); White Blood Cell Count 2.15 K/mm3 (4.00-11.30)
--- NOTE | 2021-02-20 06:42 | NUR ---
END OF SHIFT SUMMARY: No major changes overnight. Pt still AOx3 (self, surroundings and situation). Forgetfull and noncompliant at times. Needs reinforcement while providing care, is cooperative once pt is educated about task or care being provided. Agreed to a ruiz catheter to accurately measure pt temperature and help relieve excoriated perineal area. Urine output is royce and clear. 2x BM last night. On 4L nasal cannula, pt continues to cough nonproductively, offered suctioned but refused to use it. Desats down to mid 80's when oxygen cannula not on. Lung sounds are very coarse and wheezy, gets better with breathing exercises. Pt still has low grade fever at around 99.9 - 100.3 F, gave tylenol once, and ice throughout body overnight.
[2021-02-20 06:57] LABS: Anion Gap 7 mmol/L (6-16); Blood Urea Nitrogen 19 mg/dL (8-24); Bun/Creatinine Ratio 21.3 (12.0-20.0); CO2, Blood 28 mmol/L (21-32); Calcium, Blood 7.1 mg/dL (8.5-10.1); Chloride, Blood 99 mmol/L (98-108); Creatinine, Blood 0.89 mg/dL (0.60-1.20); Glomerular Filtration Rate >60 (60-); Glucose, Blood 138 mg/dL (70-99); Sodium, Blood 134 mmol/L (136-145)
--- NOTE | 2021-02-20 08:43 | NUR ---
DR PRESLEY ROUNDED, TO CHANGE S/S TO ACHS, MAG LAB ORDERED, DECADRON AND REMDISIVIR STARTED, HOLDING LOVENOX FOR PLT 78. PATIENT ALERT AND ORIENTED THIS AM, MINIMAL INTERACTION AND THEN BACK TO SLEEP, ONLY ATE 10% OF MEAL, DOES NOT TOLERATE A 90 DEGREE ANGLE FOR EATING VERY LONG AT ALL, CALL LIGHT WITH IN REACH, WCTM
--- NOTE | 2021-02-20 15:13 | NUR ---
PATIENT AND SPOUSE EDUCATED ON THE NEED FOR ASPIRATION PRECAUTIONS, ENCOURAGING DEEP BREATHING, PATIENT DESATING TO 85% AND NOT RECOVERING EASILY, DIET CHANGED TO PUREE AND NECTAR THICK LIQUIDS, PATIENT NON COOPERATIVE, FURTHER EDUCATED THE IMPORTANCE OF THESE INTERVENTION, PATIENT BECOMING WEAKER AND WEAKER, INCREASED OXYGEN NEEDS, LS COARSE, AND SWALLOWING DIFFICULTIES
--- NOTE | 2021-02-20 18:36 | NUR ---
PATIENT CONFUSED AND UNCOOPERATIVE AT TIMES, CALL LIGHT WIHT IN REACH, HARSH COUGH, COARSE LS, CLEARS CONGESTION WITH COUGH, ST DECREASED TO PUREE AND NECTAR THICK LIQUIDS, SBP 150-190S, NO PRN HTN MEDS GIVEN TODAY, BM TODAY, TEMP PATEL IN PLACE, CREAM TO EXCORIATED GROIN, REPOSITIONED Q2H, WILL RELAY TO PM RN
--- NOTE | 2021-02-20 19:30 | NUR ---
ASSUMPTION OF CARE NOTE: PT IS ALERT AND ORIENTED ON 4L NC, VS WNL AT THIS TIME. NO COMPLAINTS AND/OR S/S OF ACUTE DISTRESS NOTED AT TIME OF ASSUMPTION OF CARE. PT ON CONTINUOUS IMPROVEMENT LEAD.
[2021-02-21 05:57] LABS: BASOPHILS PERCENT AUTO 0 % (0-2); EOSINOPHILS PERCENT AUTO 0 % (0-6); Hematocrit 38.8 % (37.0-53.0); Hemoglobin 13.5 g/dL (13.5-17.5); IMMATURE GRAN ABSOLUTE AUTO 0.03 K/mm3 (0.00-0.10); IMMATURE GRAN PERCENT AUTO 2 % (0-1); LYMPHOCYTES ABSOLUTE AUTO 0.34 K/mm3 (0.84-5.20); LYMPHOCYTES PERCENT AUTO 19 % (21-46); MONOCYTES ABSOLUTE AUTO 0.19 K/mm3 (0.16-1.47); MONOCYTES PERCENT AUTO 10 % (4-13); Mean Corpuscular HGB 32.4 pg (26.0-34.0); Mean Corpuscular HGB Conc 34.8 g/dL (31.5-36.5); Mean Corpuscular Volume 93 fL (80-100); Mean Platelet Volume 12.2 fL (9.1-12.4); NEUTROPHILS ABSOLUTE AUTO 1.27 K/mm3 (1.96-9.15); NEUTROPHILS PERCENT AUTO 69 % (41-73); Platelet Count 105 K/mm3 (150-400); RDW Coefficient Variation 14.4 % (11.7-14.2); RDW Standard Deviation 48.8 fL (35.1-46.3); Red Blood Cell Count 4.17 M/mm3 (4.30-5.90); White Blood Cell Count 1.83 K/mm3 (4.00-11.30)
[2021-02-21 06:14] LABS: Anion Gap 9 mmol/L (6-16); Blood Urea Nitrogen 23 mg/dL (8-24); Bun/Creatinine Ratio 31.2 (12.0-20.0); CO2, Blood 26 mmol/L (21-32); Calcium, Blood 7.8 mg/dL (8.5-10.1); Chloride, Blood 100 mmol/L (98-108); Creatinine, Blood 0.74 mg/dL (0.60-1.20); Glomerular Filtration Rate >60 (60-); Glucose, Blood 283 mg/dL (70-99); Phosphorus, Blood 2.6 mg/dL (2.5-4.9); Potassium, Blood 4.5 mmol/L (3.5-5.5); Sodium, Blood 135 mmol/L (136-145)
--- NOTE | 2021-02-21 09:33 | NUR ---
ASSUMED CARE REPORT RECEIVED FROM LAN LAMAS. PT HAS BEEN HAVING INCREASING OXYGEN NEEDS THIS AM. RT CAME OUT AND INFORMED THAT HE HAD TO PLACE PT ON 15L NC VIA PT'S MOUTH TO GET HIM ABOVE 90%, BUT PT KEEPS TAKING OXYGEN OUT OF HIS MOUTH AND SPO2 DROPS TO AROUND 88%. PT HAD PREVIOUSLY ONLY BEEN ON 7L NC. DR. PRESLEY NOTIFIED OF INCREASED OXYGEN DEMANDS AND ORDERS RECEIVED FOR CXR AND BIPAP/CPAP PROTOCOL. RT PLACED PT ON BIPAP AND HE IS TOLERATING IT WELL. SPO2 STAYING ABOVE 90% ON 50% FIO2 WITH PRESSURES 8/5. CONTINUE TO MONITOR.
--- NOTE | 2021-02-21 12:36 | NUR ---
REASSESSMENT PT CONTINUES TO WEAR THE BIPAP AND IS TOLERATING IT WELL. RT TRIED HIM ON HI BRENT AND SPO2 HOVERED AROUND 85% AND PT SAID HE ACTUALLY PREFERRED THE BIPAP SO SWITCHED PT BACK. HI BRENT USED FOR BREAKS AND LUNCH. WITH COACHING TO BREATHE THROUGH HIS NOSE WHILE EATING PT MAINTAINED SATS 88-90% WHILE EATING. ASSISTED PT WITH LUNCH AND HE DID WELL WITH NO SIGNS OF ASPIRATION. HE ONLY ATE THE PEAR SAUCE AND BITES OF THE OTHER STUFF EVEN THOUGH RN ENCOURAGED HIM TO EAT MORE EMPHASIZING THE IMPORTANCE OF NUTRITION. PT SAID HE DIDN'T LIKE THE TASTE OF THE FOOD, BUT HE LIKES YOGURT WITH STRAWBERRIES SO WILL TRY THAT AT NEXT BREAK. LUNGS STILL SOUND A LITTLE COARSE. CONGESTED COUGH, NONPRODUCTIVE. SR WITH LOTS OF PAC AND PVC. HYPERTENSIVE AT NOON, WILL RECHECK. URINE DARK BUT CLEAR. CONTINUE TO MONITOR.
--- NOTE | 2021-02-21 17:29 | NUR ---
SHIFT SUMMARY PT WORE THE BIPAP FOR THE FIRST HALF OF THE SHIFT AND THEN WHEN HIS SO ARRIVED AT 1400 HE SWITCHED TO HI BRENT 50L 75% FIO2 AND HE HAS TOLERATED THAT SINCE WITH SPO2 IN THE LOW 90S. HIS LUNGS ARE COARSE AND HE HAS A DRY COUGH. HE STATES THAT HE IS FEELING BETTER THIS AFTERNOON. SR STILL WITH LOTS OF PAC AND PVC. SBP IN THE 140-150S. EATING ABOUT 10% OF HIS MEALS WITH ASSISTANCE. BLOOD SUGARS HIGHER TODAY. DR. PRESLEY NOTIFIED AND ORDERS RECEIVED TO CHANGE SS TO MEDIUM. PHYSICAL THERAPY HELD TODAY WITH PT'S INCREASED OXYGENATION. PT IS MOVING HIMSELF AROUND IN BED, ABLE TO ROLL ALL THE WAY TO HIS SIDE INDEPENDENTLY. 2 BMS TODAY. PATEL WITH DARK, CLEAR YELLOW URINE. PT SO WAS UPDATED WHEN SHE VISITED AND PT'S SUNIL RAE WAS UPDATED BY PHONE THIS AFTERNOON. CONTINUING TO MONITOR.
[2021-02-22 03:15] LABS: Hematocrit 38.5 % (37.0-53.0); Hemoglobin 13.3 g/dL (13.5-17.5); Mean Corpuscular HGB 32.4 pg (26.0-34.0); Mean Corpuscular HGB Conc 34.5 g/dL (31.5-36.5); Mean Corpuscular Volume 94 fL (80-100); Mean Platelet Volume 12.1 fL (9.1-12.4); Platelet Count 124 K/mm3 (150-400); RDW Standard Deviation 48.2 fL (35.1-46.3); Red Blood Cell Count 4.11 M/mm3 (4.30-5.90); White Blood Cell Count 3.57 K/mm3 (4.00-11.30)
[2021-02-22 03:30] LABS: Anion Gap 4 mmol/L (6-16); Blood Urea Nitrogen 29 mg/dL (8-24); Bun/Creatinine Ratio 36.3 (12.0-20.0); CO2, Blood 30 mmol/L (21-32); Chloride, Blood 101 mmol/L (98-108); Glomerular Filtration Rate >60 (60-); Glucose, Blood 303 mg/dL (70-99); Potassium, Blood 4.7 mmol/L (3.5-5.5); Sodium, Blood 135 mmol/L (136-145)
--- NOTE | 2021-02-22 06:05 | NUR ---
SHIFT SUMMERY: PT ON AIRVO, INCREASED FROM 50L 75%FIO2 TO 55L 100%FIO2 DURING THE NIGHT DUE TO DESATURATION. PT DENIES INCREASED SOB AND DOES NOT APPEAR TO BE IN ACUTE DISTRESS. HE IS ALERT AND ORIENTED X 3 WITH PATEL CATHETER INTACT PATENT AND DRAINING BELOW LEVEL OF THE BLADDER. VS WNL AT THIS TIME, RIGHT UPPER ARM POWER GLIDE AT TKO FOR ANTIBIOTICS INFUSING WITHOUT DIFFICULTY.
--- NOTE | 2021-02-22 08:50 | NUR ---
PT'S BLOOD SUGARS CONTINUE TO BE IN THE 300S. SPOKE WITH DR. PRESLEY AND RECEIVED ORDER FOR LONG ACTING INSULIN IN THE AM. ALSO DISCUSSED PT'S BP AND THAT PT HAS METOPROLOL ON HIS MED REC. RECEIVED ORDER TO START METOPROLOL, SEE ORDERS.
--- NOTE | 2021-02-22 11:48 | NUR ---
REASSESSMENT PT WORE THE AIRVO ALL MORNING AND FIO2 WAS ABLE TO BE TITRATED DOWN TO 85%, THEN AROUND 1130 PT'S SPO2 DROPPED TO 85% AND STAYED THERE. SWITCHED PT TO BIPAP AND SPO2 IMPROVED TO LOW 90S AND PT IS RETING COMFORTABLY ON THE BIPAP. LUNGS REMAIN COARSE, NON PRODUCTIVE COUGH. SR WITH PAC AND PVC. SBP 150S. CONTINUING TO MONITOR.
--- NOTE | 2021-02-22 17:40 | NUR ---
SHIFT SUMMARY PT USED HIGH FLOW NASAL CANNULA FOR MOST OF THE SHIFT. HE BRIEFLY WENT ON BIPAP DUE TO DESATURATION BUT QAS QUICKLY ABLE TO GO BACK TO HIGH FLOW. TONIGHT HE REQUESTED TO WEAR THE BIPAP AFTER DINNER AND HE IS ONLY REQUIRING FIO2 70% ON BIPAP, COMPARED TO 85% ON THE NASAL CANNULA. HIS LUNGS SOUND A LITTLE LESS COARSE AND HIS COUGH WAS LESS FREQUENT TODAY. SR WITH PVC AND PAC. BP BETTER CONTROLLED TODAY WITH SBP AROUND 140. PT LIKES TO EAT THE PUREED FRUIT AND THE JUICE PROVIDED, BUT NOT THE REST OF THE MEAL. LOTS OF ENCOURAGEMENT PROVIDED TO EAT MORE, BUT PT DOESN'T WANT TO. CONSIDERED SWITCHING PT TO ADA DIET, BUT SINCE PT IS EATING SO LITTLE DECISION MADE TO STAY WITH CURRENT DIET AND DR. PRESLEY AGREED. 1 BM TODAY. PATEL WITH CL DARK URINE. PT'S SO VISITED AGAIN TODAY AND UPDATED BY NURSING STAFF.
--- NOTE | 2021-02-22 19:34 | NUR ---
ASSUMPTION OF CARE: PT IS STABLE AT TIME OF ASSUMPTION OF CARE. NO S/S OF ACUTE DISTRESS NOTED.
--- NOTE | 2021-02-23 11:17 | NUR ---
ASSUMED CARE @0700 PATIENT ALERT AND ORIENTED X SELF, MONTH, AND FOLLOWING DIRECTION, UNABLE TO STATE YEAR OR WHAT CITY HE WAS IN. PLEASANT AND COOPERATIVE WITH CARE. 02 SATS 88-93% ON AIRVO 55L FI02 80%. LUNG SOUNDS COARSE TO DIMINISHED. HR SR WITH PACs AND PVCs AT 90s. BP HYPERTENSIVE, WILL MEDICATED PER EMAR. PATIENT 1:1 FEED FOR MEALS. ATE ABOUT 10% FOR BREAKFAST. Q2 HOURS REPOSITIONING. SEE SHIFT ASSESSMENT FOR MORE DETAIL.
--- NOTE | 2021-02-23 18:19 | NUR ---
SHIFT SUMMARY PATIENT IS ALERT AND ORIENTED X3, UNABLE TO STATE YEAR, COOPERATIVE AND FOLLOWS COMMANDS OTHERWISE. 02 SATS 93% ON AIRVO 55L, 90%. LUNGS COARSE TO DIMINISHED. HR SR @80s. BP STABLE TO HYPERTENSIVE. PATIENT ATE SMALL AMOUNT OF EACH MEAL. SPEECH THERAPY TO ROOM AND DIET ADVANCED, SEE ORDERS. PATIENT UP TO RECLINER FOR PART OF SHIFT. PATEL DRAINING CLEAR YELLOW URINE TO GRAVITY. CALL LIGHT IN REACH.
--- NOTE | 2021-02-23 20:14 | NUR ---
ASSUMING PT CARE: PT LAYING SUPINE IN BED, WATCHING TV. APPROPRIATELY INTERACTIVE. A&O x3. AIRVO @ 55L, 90% FiO2. SPO2 99%. PT ABLE TO SPEAK IN 2-3 WORD SENTENCES. LS COARSE T/O. SBP 120s, HR NSR. CALLS & IS TRANSFERRED INTO THE ROOM. PT APPEARS TO BE IN VERY GOOD SPIRITS IN SPEAKING W/ HER & ENDORSES HIS EXCITEMENT IN GETTING BETTER & CLOSER TO DC. PT DENIES ANY UNMET NEEDS. WILL CONTINUE TO EVALUATE & REPORT APPROPRIATE.
--- NOTE | 2021-02-24 01:00 | NUR ---
UPDATE: PT NOTED TO BE HYPOXIC @ 80% SPO2 W/ NO CHANGES IN O2 DELIVERY; AIRVO 55L, 90%FIO2. PT DENIES SOB & HAS NO COMPLAINTS. REPOSITIONED & RT CALLED TO BEDSIDE. LS COARSE T/O & PT UNABLE TO DEMONSTRATE A SIGNIFICANT COUGH. BREATHING Tx GIVEN & PT WAS ABLE TO PRODUCE SLIGHT COUGH & CLEAR SOME SECRETIONS. FIO2 INC TO 100% & SPO2 IMPROVED TO 93%.
[2021-02-24 05:51] LABS: Hematocrit 36.9 % (37.0-53.0); Hemoglobin 12.5 g/dL (13.5-17.5); Mean Corpuscular HGB Conc 33.9 g/dL (31.5-36.5); Mean Corpuscular Volume 94 fL (80-100); Mean Platelet Volume 11.4 fL (9.1-12.4); Platelet Count 155 K/mm3 (150-400); RDW Standard Deviation 48.7 fL (35.1-46.3); Red Blood Cell Count 3.91 M/mm3 (4.30-5.90); White Blood Cell Count 3.91 K/mm3 (4.00-11.30)
--- NOTE | 2021-02-24 06:00 | NUR ---
SHIFT SUMMARY: PT RESTED WELL T/O THE NIGHT. HE REMAINED ON AIRVO ALL NIGHT W/ O2 REQUIREMENTS INC AROUND 0030. PT HAS SINCE RECOVERED WELL & 100% SPO2. SEE PREVIOUS NOTATION. HR REMAINS IRREGULAR W/ INTERMITTENT PVCs & PACs. SBP STABLE. 550ml URINE OUTPUT. NO BM.
[2021-02-24 06:37] LABS: Albumin, Blood 2.1 g/dL (3.4-5.0); Anion Gap 6 mmol/L (6-16); Blood Urea Nitrogen 27 mg/dL (8-24); Bun/Creatinine Ratio 37.2 (12.0-20.0); CO2, Blood 28 mmol/L (21-32); Calcium, Blood 7.9 mg/dL (8.5-10.1); Chloride, Blood 104 mmol/L (98-108); Creatinine, Blood 0.73 mg/dL (0.60-1.20); Glomerular Filtration Rate >60 (60-); Glucose, Blood 200 mg/dL (70-99); Magnesium, Blood 1.9 mg/dL (1.6-2.4); Phosphorus, Blood 3.9 mg/dL (2.5-4.9); Potassium, Blood 4.8 mmol/L (3.5-5.5); Sodium, Blood 138 mmol/L (136-145)
--- NOTE | 2021-02-24 09:31 | NUR ---
ASSUMED PT CARE AT 0700. PT A/OX4, FILIPE, MOTIVATED TO "GET BETTER AND GO HOME." AIRVO ADJUSTED TO 50L 85% BY RT, SATS MAINTAIN GREATER THAN 90%. PT ABLE TO EAT 40% OF BREAKFAST WITH ASSIST. PLAN TO MOBILIZE PT TO CHAIR VIA CEILING LIFT AND CONTINUE THERAPIES.
--- NOTE | 2021-02-24 16:23 | NUR ---
Spiritual care visit. Pt. was alert and in bed. Welcomed my visit. Pt. demonstrated distress about his spouse at home. Spouse is also dealing with health concerns. Listened empthetically and facilitated a brief life review. Pt. was receptive and displayed evidence of comprehension and encouragement. Prayed for pt. and his spouse at home. Pt. welcomed me to visit again. I will monitor his progress.
--- NOTE | 2021-02-24 17:48 | NUR ---
SHIFT SUMMARY PT PROGRESSING WELL. A/OX4, DENT, CALM AND COOPERATIVE T/O SHIFT. PT UP TO CHAIR FROM APPROX [id number] VIA SLING WITH 2 PERSON ASSIST. PHYS THERAPY WORKED WITH PT. VSS X PT REQUIRED HYDRALIZINE IV X 1 FOR SBP GREATER THAN 160, RESOLVED. AIRVO SETTINGS DECREASED TO 55L 80%, SATS REMAIN 90% AND GREATER. PT ATE LESS THAN HALF OF MEALS, ASSISTANCE REQUIRED. OT RAMO ORDERED. PT'S HAS BEEN ADMITTED TO SURGICAL UNIT FOR OBSERVATION TODAY, PT HAS SPOKEN WITH HER ON PHONE.
--- NOTE | 2021-02-24 21:35 | NUR ---
RECEIVED PAZ FROM RISSA CORDERO SITTING IN BED, RECLINED, WATCHING TV, STATES HE JUST WOKE UP TO FINISH WATCHING THE GAME. DENIES ANY NEEDS. ASKING HOW HIS OXYGEN IS, HE IS ON AIR VO 50L, 90%. DOING WELL WITH SATS 94-95%.
--- NOTE | 2021-02-25 01:21 | NUR ---
PAZ HAS BEEN RESTING, HE HAD ASKED ME TO LEAVE HIS ROOM AROUND 2100 SO HE COULD GET SOME SLEEP. HE AWOKE BRIEFLY AROUND MIDNIGHT, TURNS AND REPOSITIONS SELF WITHOUT INCIDENT. FIO2 HAS BEEN DECREASED TO 80% FOR SATS 100% WHILE SLEEPING. PATEL OUTPUT CONTINUES RODY IN COLOR.
--- NOTE | 2021-02-25 05:31 | NUR ---
PAZ HAS BEEN DOING WELL T/O THE NIGHT WITH HIS OXYGEN SATS BEING >95%. THE FIO2 WAS BEING TITRATED DOWN AND WENT TO 75%. IT IS NOW BACK UP TO 80% HE IS MOUTH BREATHING. HE DENIES ANY COMPLAINTS AT THIS TIME, OTHER THAN WANTING TO GO BACK TO SLEEP. HE DIDN'T HAVE MUCH INPUT BUT HAD 900CC OUT WITH THE PATEL. HE IS PLEASANT, DOES NOT APPEAR TO BE IN DISTRESS. HE HAS BEEN MOVING HIMSELF ABOUT IN BED AND HAS REFUSED MY ASSISTANCE WITH TURNING. WILL CONTINUE TO MONITOR AND REPORT OFF TO DAYSHIFT WHEN ABLE.
--- NOTE | 2021-02-25 07:24 | NUR ---
ASSUMED PT CARE AT 0700. PT ASLEEP, ON AIRVO 50L 80%; SATS 93-98%. APPEARS COMFORTABLE.
--- NOTE | 2021-02-25 11:55 | NUR ---
Spiritual Care follow up. Pt. was alert and in his bed. Pt. welcomed me but was more guarded about sharing his experience. I informed him that I had just seen his life partner who is currently also admitted as a pallative care pt. Established rapport, and identified a common concern of he and his partner. Pastoral prayer was given. I am welcomed to return to visit.
--- NOTE | 2021-02-25 17:39 | NUR ---
PT A/OX4, MOTIVATED, COOPERATIVE WITH CARE. UP TO CHAIR VIA SLING FOR 5 HRS, TOLERATED WELL. MARCHED IN PLACE WITH FWW AND GAIT BELT WITH PHYS THERAPY AND OT. NO C/O PAIN. AFEBRILE. BP STABLE. AIRVO SETTINGS DECREASED TO 50L 65% BY END OF SHIFT, SATS REMAIN 90% AND GREATER. PT USING IS AND FLUTTER VALVE. LOW APPETITE, EATING ONLY SNACKS, NOT FULL MEALS. BM TODAY. DISCUSSED THAT IT WOULD BE APPROPIATE TO DC FC, AND PT STATES, "PLEASE LEAVE IT IN, DON'T TAKE IT OUT." DISCUSSED RISKS/BENEFITS OF FC, PT VERBALIZED UNDERSTANDING, AND REITERATED HE DOES NOT WANT IT OUT TODAY. PT SPOKE WITH ON PHONE X 3. MARIUM LONDON UPDATED BY RN.
[2021-02-26 09:04] LABS: BASOPHILS ABSOLUTE AUTO 0.01 K/mm3 (0.00-0.23); BASOPHILS PERCENT AUTO 0 % (0-2); EOSINOPHILS ABSOLUTE AUTO 0.03 K/mm3 (0.00-0.68); EOSINOPHILS PERCENT AUTO 1 % (0-6); Hematocrit 39.1 % (37.0-53.0); Hemoglobin 13.4 g/dL (13.5-17.5); IMMATURE GRAN ABSOLUTE AUTO 0.24 K/mm3 (0.00-0.10); IMMATURE GRAN PERCENT AUTO 4 % (0-1); LYMPHOCYTES ABSOLUTE AUTO 0.48 K/mm3 (0.84-5.20); LYMPHOCYTES PERCENT AUTO 7 % (21-46); MONOCYTES ABSOLUTE AUTO 0.46 K/mm3 (0.16-1.47); MONOCYTES PERCENT AUTO 7 % (4-13); Mean Corpuscular HGB 31.8 pg (26.0-34.0); Mean Corpuscular HGB Conc 34.3 g/dL (31.5-36.5); Mean Corpuscular Volume 93 fL (80-100); Mean Platelet Volume 11.6 fL (9.1-12.4); NEUTROPHILS ABSOLUTE AUTO 5.36 K/mm3 (1.96-9.15); NEUTROPHILS PERCENT AUTO 81 % (41-73); Platelet Count 193 K/mm3 (150-400); RDW Coefficient Variation 13.9 % (11.7-14.2); RDW Standard Deviation 47.3 fL (35.1-46.3); Red Blood Cell Count 4.22 M/mm3 (4.30-5.90); White Blood Cell Count 6.58 K/mm3 (4.00-11.30)
[2021-02-26 09:21] LABS: Anion Gap 9 mmol/L (6-16); Blood Urea Nitrogen 29 mg/dL (8-24); Bun/Creatinine Ratio 38.2 (12.0-20.0); CO2, Blood 25 mmol/L (21-32); Calcium, Blood 8.2 mg/dL (8.5-10.1); Chloride, Blood 101 mmol/L (98-108); Creatinine, Blood 0.76 mg/dL (0.60-1.20); Glomerular Filtration Rate >60 (60-); Glucose, Blood 53 mg/dL (70-99); Potassium, Blood 5.1 mmol/L (3.5-5.5); Sodium, Blood 135 mmol/L (136-145)
--- NOTE | 2021-02-26 15:30 | NUR ---
[place] NOW, PATIENT COOPERATIVE AND WORKED WITH PT TODAY, REFSUED OT DUE TO FEELING WEAK FROM PT. MAKES NEEDS KNOWN
[2021-02-27 04:06] LABS: Hematocrit 39.1 % (37.0-53.0); Hemoglobin 13.8 g/dL (13.5-17.5); Mean Corpuscular HGB 32.2 pg (26.0-34.0); Mean Corpuscular HGB Conc 35.3 g/dL (31.5-36.5); Mean Corpuscular Volume 91 fL (80-100); Mean Platelet Volume 11.6 fL (9.1-12.4); Platelet Count 204 K/mm3 (150-400); RDW Coefficient Variation 13.6 % (11.7-14.2); RDW Standard Deviation 46.3 fL (35.1-46.3); Red Blood Cell Count 4.28 M/mm3 (4.30-5.90)
[2021-02-27 04:26] LABS: BAND PERCENT MAN 3 % (0-8); BASOPHILS PERCENT MAN 0 % (0-2); EOSINOPHILS PERCENT MAN 0 % (0-6); LYMPHOCYTES ABSOLUTE MAN 0.18 K/mm3 (0.84-5.20); LYMPHOCYTES PERCENT MAN 3 % (21-46); METAMYELOCYTE ABSOLUTE MAN 0.06 K/mm3 (0.00-0.00); METAMYELOCYTE PERCENT MAN 1 % (0-0); MONOCYTES ABSOLUTE MAN 0.62 K/mm3 (0.16-1.47); MONOCYTES PERCENT MAN 10 % (4-13); MYELOCYTE ABSOLUTE MAN 0.18 K/mm3 (0.00-0.00); MYELOCYTE PERCENT MAN 3 % (0-0); NEUTROPHILS ABSOLUTE MAN 5.14 K/mm3 (1.96-9.15); SEG NEUTROPHILS PERCENT MAN 80 % (41-73); TOTAL CELLS COUNTED 100
[2021-02-27 04:29] LABS: Alanine Aminotransfer (ALT/SGP 54 U/L (12-78); Albumin, Blood 2.3 g/dL (3.4-5.0); Albumin/Globulin Ratio 0.6 (0.8-1.8); Alk Phos 174 U/L (50-136); Anion Gap 7 mmol/L (6-16); Aspartate Aminotrans (AST/SGOT 37 U/L (12-37); Bilirubin, Total 1.1 mg/dL (0.1-1.0); Blood Urea Nitrogen 32 mg/dL (8-24); Bun/Creatinine Ratio 36.7 (12.0-20.0); CO2, Blood 29 mmol/L (21-32); Calcium, Blood 8.4 mg/dL (8.5-10.1); Chloride, Blood 96 mmol/L (98-108); Creatinine, Blood 0.87 mg/dL (0.60-1.20); Globulin, Blood 4.1 g/dL (2.2-4.0); Glomerular Filtration Rate >60 (60-); Glucose, Blood 161 mg/dL (70-99); Sodium, Blood 132 mmol/L (136-145); Total Protein, Blood 6.4 g/dL (6.4-8.2)
[2021-02-28 05:45] LABS: Hematocrit 39.4 % (37.0-53.0); Hemoglobin 13.5 g/dL (13.5-17.5); Mean Corpuscular HGB 31.5 pg (26.0-34.0); Mean Corpuscular HGB Conc 34.3 g/dL (31.5-36.5); Mean Corpuscular Volume 92 fL (80-100); Mean Platelet Volume 11.7 fL (9.1-12.4); Platelet Count 227 K/mm3 (150-400); RDW Coefficient Variation 13.7 % (11.7-14.2); RDW Standard Deviation 46.5 fL (35.1-46.3); Red Blood Cell Count 4.28 M/mm3 (4.30-5.90); White Blood Cell Count 4.66 K/mm3 (4.00-11.30)
[2021-02-28 06:05] LABS: Alanine Aminotransfer (ALT/SGP 48 U/L (12-78); Albumin, Blood 2.2 g/dL (3.4-5.0); Albumin/Globulin Ratio 0.5 (0.8-1.8); Alk Phos 171 U/L (50-136); Anion Gap 8 mmol/L (6-16); Aspartate Aminotrans (AST/SGOT 33 U/L (12-37); Bilirubin, Total 1.1 mg/dL (0.1-1.0); Blood Urea Nitrogen 39 mg/dL (8-24); Bun/Creatinine Ratio 43.5 (12.0-20.0); CO2, Blood 27 mmol/L (21-32); Calcium, Blood 8.6 mg/dL (8.5-10.1); Chloride, Blood 97 mmol/L (98-108); Globulin, Blood 4.1 g/dL (2.2-4.0); Glomerular Filtration Rate >60 (60-); Glucose, Blood 186 mg/dL (70-99); Potassium, Blood 5.5 mmol/L (3.5-5.5); Sodium, Blood 132 mmol/L (136-145); Total Protein, Blood 6.3 g/dL (6.4-8.2)
[2021-02-28 06:09] LABS: BAND PERCENT MAN 3 % (0-8); BASOPHILS PERCENT MAN 0 % (0-2); EOSINOPHILS PERCENT MAN 0 % (0-6); LYMPHOCYTES ABSOLUTE MAN 0.41 K/mm3 (0.84-5.20); LYMPHOCYTES PERCENT MAN 9 % (21-46); MONOCYTES ABSOLUTE MAN 0.23 K/mm3 (0.16-1.47); MONOCYTES PERCENT MAN 5 % (4-13); MYELOCYTE ABSOLUTE MAN 0.13 K/mm3 (0.00-0.00); MYELOCYTE PERCENT MAN 3 % (0-0); NEUTROPHILS ABSOLUTE MAN 3.86 K/mm3 (1.96-9.15); SEG NEUTROPHILS PERCENT MAN 80 % (41-73); TOTAL CELLS COUNTED 100
--- NOTE | 2021-03-01 06:04 | NUR ---
PT RESTS QUIETLY THROUGHOUT SHIFT, COMPLAINS OF INTERRUPTED SLEEP AT TIMES OF ASSESSMENT AND ADLS, STATES THAT HE IS NOT SLEEPING WELL, DOES INQUIRE REGARDING HIS OXYGEN REQUIREMENTS INTERMITTENTLY THROUGHOUT SHIFT. FIO2 HAS BEEN TITRATED DOWN TO 55% OF THIS TIME AND SATS ARE MAINTAINING LOW TO MID 90S AT REST. OTHERWISE NO ACUTE CHANGES THIS SHIFT.
--- NOTE | 2021-03-01 08:00 | NUR ---
INITIAL ASSESSMENT PATIENT ALERT AND ORIENTED EXCEPT TO TOWN AND YEAR. PATIENT IRRITABLE AND FRUSTRATED AT TIMES. PATIENT DOES NOT WANT NURSE CARE AT TIMES BUT FOR THE MOST PART IS COOPERATIVE. PATIENT WEAK BUT ABLE TO MOVE ALL EXTREMITIES. PATIENT AFEBRILE. PATIENT DENIES PAIN. PATIENT SATTING 90% AND GREATER ON AIRVO AT 50 L AND 55% FIO2. PATIENT DENIES COUGH. LUNGS COARSE AND RHONCHOROUS THROUGHOUT. PATIENT IN SR WITH PVCS AND PACS, HR IN THE 80S. SBP IN THE 120S. GI WNL. PATEL DRAINING RODY COLORED URINE. SCATTERED SCABS NOTED T/O BODY. IV FLUSHED AND SALINE LOCKED. BED LOW, CALL LIGHT IN REACH. WILL CONTINUE TO MONITOR PATIENT FREQUENTLY THROUGHOUT SHIFT.
--- NOTE | 2021-03-01 09:56 | NUR ---
DR. ESCAMILLA HERE TO SEE PATIENT. INFORMED THAT PATIENT FIO2 ABLE TO BE DECREASED DURING NIGHT FROM 70% TO 55%. INFORMED THAT FIO2 HAD TO BE INCREASED BACK UP TO 70% THIS AM WHILE PATIENT EATING BREAKFAST TO KEEP SATS 90% AND GREATER. INFORMED THAT PATIENT HAD NO AM LABS PERFORMED THIS AM. NO ORDERS RECEIVED AT THIS TIME.
--- NOTE | 2021-03-01 13:00 | NUR ---
PATIENT AFEBRILE. NO COMPLAINTS OF PAIN. PATIENT REFUSED LUNCH AND SAID "I GOT ENOUGH TO EAT AT BREAKFAST". HR IN THE 80S. SBP IN THE 130S. FIO2 DECREASED BACK DOWN TO 55% FROM 70% ON AIRVO. BLOOD SUGAR 230; COVERAGE GIVEN. NO OTHER ACUTE CHANGES TO NOTE ON AT THIS TIME. WILL CONTINUE TO MONITOR.
--- NOTE | 2021-03-01 16:40 | NUR ---
PATIENT AFEBRILE. NO COMPLAINTS OF PAIN. HR IN THE 70S. SBP 120/58. NOTED SKIN AROUND ANUS EXCORIATED WHEN DOING CHANTAL CARE. PATIENT RECEIVED COMPLETE BED BATH. BLOOD SUGAR 192; COVERAGE GIVEN. NO OTHER ACUTE CHANGES TO NOTE ON AT THIS TIME. WILL CONTINUE TO MONITOR.
--- NOTE | 2021-03-01 18:53 | NUR ---
SHIFT SUMMARY PATIENT REMAINED MOSTLY ALERT AND ORIENTED. PATIENT REMAINED AFEBRILE. PATIENT HAD NO COMPLAINTS OF PAIN. PATIENT REMAINED WEAK BUT ABLE TO ASSIST WITH REPOSITIONING. PATIENT REMAINED IRRITIBLE AND FRUSTRATED EASILY BUT MOSTLY REMAINED COOPERATIVE. LUNGS REMAINED COARSE WITH RHONCHI. PATIENT REMAINED ON AIRVO AT 50 L; FIO2 70% WHEN EATING, OTHERWISE HAS BEEN SATTING 90% AND GREATER ON 55% FIO2. PATIENT REMAINED SR WITH PACS AND PVCS WITH HR 70S TO 80S. SBP 120S TO 130S. NO BM THIS SHIFT. PATIENT DID NOT WANT LUNCH OR DINNER. PATEL DRAINED 500 MLS OF RODY COLORED URINE. NO CHANGES TO SKIN NOTED. PATIENT REPOSITIONED T/ SHIFT. PATIENT RECEIVED COMPLETE BED BATH THIS SHIFT. BLOOD SUGARS RANGED FROM 143 TO 192. BED LOW, CALL LIGHT IN REACH. PATIENT HAS NO COMPLAINTS AT THIS TIME. REPORT WILL BE GIVEN TO ASSUMING WELDING MACHINE OPERATOR THERMIT NURSE SHORTLY.
--- NOTE | 2021-03-01 21:35 | NUR ---
2129 PT NONCOOPERATIVE AND IRRITABLE ON ASSESMENT, REFUSING TO ANSWERT ORIENTATION QUESTIONS, STATES "IM SICK AND TIRED OF THIS SHIT." PT EDUCATED ON ASSESSMENT OF NEURO SYSTEM, BUT STATES "I DONT CARE." REFUSES TO TURN, AGGRAVETED WITH THIS RN TAKING VS AND LISTENTING TO LUNGS/ABD. CBG 146, NO COVERAGE REQUIRED. LUNG SOUNDS COARSE UPPER GORE AND DIMINISHED IN BASES, DENIES PRODUCTIVE COUGH. WILL CONTINIE TO MONITOR. LAN MUNOZ
[2021-03-02 04:34] LABS: Hematocrit 37.9 % (37.0-53.0); Hemoglobin 13.2 g/dL (13.5-17.5); Mean Corpuscular HGB Conc 34.8 g/dL (31.5-36.5); Mean Corpuscular Volume 92 fL (80-100); Mean Platelet Volume 11.6 fL (9.1-12.4); Platelet Count 233 K/mm3 (150-400); RDW Coefficient Variation 13.6 % (11.7-14.2); RDW Standard Deviation 46.6 fL (35.1-46.3); Red Blood Cell Count 4.12 M/mm3 (4.30-5.90)
[2021-03-02 04:35] LABS: BASOPHILS ABSOLUTE AUTO 0.01 K/mm3 (0.00-0.23); BASOPHILS PERCENT AUTO 0 % (0-2); EOSINOPHILS ABSOLUTE AUTO 0.01 K/mm3 (0.00-0.68); EOSINOPHILS PERCENT AUTO 0 % (0-6); IMMATURE GRAN ABSOLUTE AUTO 0.14 K/mm3 (0.00-0.10); IMMATURE GRAN PERCENT AUTO 2 % (0-1); LYMPHOCYTES ABSOLUTE AUTO 0.71 K/mm3 (0.84-5.20); LYMPHOCYTES PERCENT AUTO 10 % (21-46); MONOCYTES ABSOLUTE AUTO 0.43 K/mm3 (0.16-1.47); MONOCYTES PERCENT AUTO 6 % (4-13); NEUTROPHILS ABSOLUTE AUTO 5.74 K/mm3 (1.96-9.15); NEUTROPHILS PERCENT AUTO 82 % (41-73); White Blood Cell Count 7.04 K/mm3 (4.00-11.30)
--- NOTE | 2021-03-02 04:59 | NUR ---
SHIFT SUMMARY: PT AWAKE AND ALERT, VERY IRRITABLE AND NONCOOPERATIVE THIS SHIFT. ASKED QUESTIONS RELATED TO HIS HELATH DURING ASSESSMENTS,, BUT IGNORES NURSE, THEN YELLS WHEN THE QUESTION IS REPEATED. REFUSES TO TURN, REPOSITION, OR OTHERWISE HAVE BED AND LINEN ADJUSTED. VSS, TELE SHOWS SR WITH FREQ ECTOPY (PAC AND PVC), PATEL PATENT AND DRAINING CLEAR YELLOW URINE, DENIES PAIN WHEN HE FINALLY ANSWERED QUERY. REMAINS ON PRECAUTIONS DUE TO +COVID STATUS, BED LOCKED AND LOW, CALL MCGRAW IN REACH. LAN MUNOZ
[2021-03-02 05:01] LABS: Anion Gap 6 mmol/L (6-16); Blood Urea Nitrogen 59 mg/dL (8-24); Bun/Creatinine Ratio 62.2 (12.0-20.0); CO2, Blood 28 mmol/L (21-32); Calcium, Blood 8.6 mg/dL (8.5-10.1); Chloride, Blood 99 mmol/L (98-108); Creatinine, Blood 0.95 mg/dL (0.60-1.20); Glomerular Filtration Rate >60 (60-); Glucose, Blood 125 mg/dL (70-99); Potassium, Blood 4.8 mmol/L (3.5-5.5); Sodium, Blood 133 mmol/L (136-145)
[2021-03-02 06:01] LABS: BASOPHILS PERCENT MAN 0 % (0-2); EOSINOPHILS PERCENT MAN 0 % (0-6); LYMPHOCYTES ABSOLUTE MAN 0.77 K/mm3 (0.84-5.20); LYMPHOCYTES PERCENT MAN 11 % (21-46); MONOCYTES ABSOLUTE MAN 0.14 K/mm3 (0.16-1.47); MONOCYTES PERCENT MAN 2 % (4-13); NEUTROPHILS ABSOLUTE MAN 6.12 K/mm3 (1.96-9.15); SEG NEUTROPHILS PERCENT MAN 87 % (41-73); TOTAL CELLS COUNTED 100
--- NOTE | 2021-03-02 08:20 | NUR ---
INITIAL ASSESSMENT PATIENT ALERT AND MOSTLY ORIENTED. PATIENT IRRITABLE, ABRASIVE, RUDE BUT MOSTLY COOPERATIVE. PATIENT WEAK BUT ABLE TO MOVE ALL EXTREMIITES. PATIENT AFEBRILE. PATIENT DENIES PAIN. LUNGS COARSE WITH RHONCHI T/O. PATIENT SATTING 90% AND GREATER ON AIRVO AT 50 L AND 50% FIO2. PATIENT DENIES COUGH. SOB WITH EXERTION. PATIENT IN SR WITH PACS AND PVCS, HR IN THE 80S. SBP IN THE 120S. GI WNL. PATEL DRAINING RODY COLORED URINE. SCATTERED SCABS NOTED. AROUND ANUS IS EXCORIATED. IF FLUSHED AND SALINE LOCKED. BED LOW, CALL LIGHT IN REACH. WILL CONTINUE TO MONITOR PATIENT FREQUENTLY THROUGHOUT SHIFT.
--- NOTE | 2021-03-02 13:00 | NUR ---
PATIENT AFEBRILE. HR IN THE 70S. SBP IN THE 130S. O2 DECREASED TO 10 L HF NC. PATIENT REFUSED LUNCH. BLOOD SUGAR 182; COVERAGE GIVEN. PATIENT IS REFUSING REPOSITIONING AND ORAL CARE. NO OTHER ACUTE CHANGES TO NOTE ON AT THIS TIME. WILL CONTINUE TO MONITOR.
--- NOTE | 2021-03-02 17:08 | NUR ---
Palliative Case Conference: ICU bedside RN requests f/u phone call with pt's regarding "telephone conference" on Tuesday. I placed a call to pt's Janell, who reports her son and D-I-L will be having a conference call between themselves, pt and prosecuting attorney to make needed changes to pt's POA, Will, etc. I will check with AGRICULTURAL SPECIALIST and ICU guardian ad litem to request approval for this meeting in patient's room on 03/04 at 1530.
--- NOTE | 2021-03-02 17:13 | NUR ---
PATIENT AFEBRILE. NO COMPLAINTS OF PAIN. HR IN THE 80S. SBP IN THE 130S. PATIENT REMAINS ON 10 L HF NC. NO OTHER ACUTE CHANGES TO NOTE ON AT THIS TIME. WILL CONTINUE TO MONITOR.
--- NOTE | 2021-03-02 17:15 | NUR ---
SHIFT SUMMARY PATIENT REMAINED ALERT AND MOSTLY ORIENTED. PATIENT CAN BE IRRITABLE AND ABRASIVE. PATIENT HAS BEEN MOSTLY COOPERATIVE BUT HAS REFUSED REPOSITIONING FOR HALF OF THE DAY. PATIENT HAS REMAINED AFEBRILE. PATIENT HAS HAD NO COMPLAINTS OF PAIN. PATIENT WORKED WITH PT/ OT AND GOT OOB TO CHAIR 1 PERSON ASSIST WITH FWW. PATIENT STARTED SHIFT ON AIRVO AT 50 L AND 50% FIO2. PATIENT NOW ON 10 L HF NC AND REMAINS SATTING 90% AND GREATER. LUNGS HAVE REMAINED COARSE WITH RHONCHI T/O. PATIENT HAS REMAINED SR WITH FREQUENT PACS AND PVCS. HR 70S TO 80S. SBP LOW 100S TO 130S. NO BM THIS SHIFT. PATIENT ATE CREAM OF WHEAT AT BREAKFAST BUT REFUSED LUNCH. BLOOD SUGARS RANGED FROM 89 TO 182. PATEL DRAINED 600 MLS OF RODY COLORED URINE. NO CHANGES TO SKIN NOTED. PATIENT TO BE TRANSFERRED TO PCU ROOM 07. PATIENT'S , ANDIE, CALLED AND INFORMED THAT PATIENT WILL BE MOVED OVER SHORTLY.
--- NOTE | 2021-03-02 18:00 | NUR ---
PATIENT SUCCESSFULLY TRANSFERRED TO PCU ROOM 07. ALL BELONGINGS SENT WITH PATIENT.
--- NOTE | 2021-03-03 05:16 | NUR ---
SHIFT SUMMARY PATIENT ALERT AND ORIENTED, IRRITABLE. VSS WITH SOFT BLOOD PRESSURES WHILE SLEEPING. PATIENT REMAINS ON 10L HIGH FLOW NC WITH OXYGEN SATURATION ABOVE 90%. ATTEMPT TO TITRATE OXYGEN BUT PATIENT DESATS WITH ACTIVITY/PROLONGED CONVERSATION. DENIES CHEST PAIN OR PRESSURE T/O NIGHT. ONE RUN OF SVT LASTING 5 BEATS OVERNIGHT. RHYTHM STRIP IN CHART. PATEL IN PLACE DRAINING DARK YELLOW URINE TO GRAVITY. PATIENT REFUSING STAFF TO CHECK BRIEF FOR BOWEL MOVEMENTS. PATIENT ALSO REFUSING STAFF ASSIST WITH TURNING BUT PATIENT CAN REPOSITION SELF IN BED. NO OTHER SIGNIFICANT CHANGES TO PATIENT'S STATUS. WILL REPORT TO DAY SHIFT RN.
--- NOTE | 2021-03-03 09:02 | NUR ---
Pt is on 10 l/min oxygen delivery. Tachypnea noted at rest. He is lying in bed, spo2 90-92% at rest, drops to 83% with activity of sitting forward to allow auscultation of lungs. recovery to 88% within 2 minutes. Lung sounds are coarse throughout, and wheezing also noted throughout. pt refuses to reposition, refuses proning, side-lying. Also states that he has not been out of bed to chair because he doesn't want to. Recommended tolerated activity to improve lung toilet and healing, but he refuses, states he doesn't want to. Explained to pt that his oxygen requirements have imcreased in past few hours from 6 to 10 liters. Pt states that he doesn't care. PT states that he doesn't want to be put on a ventilator if his condition deteriorates. Medications were given with applesauce. Rosales catheter was removed. Pt expressed concern that it would be painful when removed, but he said afterwards that it was not painful. Pt spo2 recovered to 94% at this time; he is talking on the phone, and HOB was lowered to 34 degrees at his request.
--- NOTE | 2021-03-03 13:13 | NUR ---
After talking with physical therapist, pt was agreeable to get OOB to chair using lift "in an hour" which was said at 11:30 At 12:30 using the jose lift, pt was transferred in sling lift sheet to the recliner at bedside. He tolerated it very well while on 6 l/min of oxygen, and after transfer was stable on 5 l/min of O2 with spo2 93-95% while sitting up. He said that he feels fine.
--- NOTE | 2021-03-03 16:03 | NUR ---
1500 Pt transferred from recliner chair back to bed at his own request. One person moderate assistance with gait belt and walker. Spo2 maintaining greater than 90% on 5 l/min oxygen delivery.
--- NOTE | 2021-03-03 18:32 | NUR ---
This morning the pt was not agreeable to repositioning, sitting on side of bed, nor getting up to chair. This afternoon he got up to chair with staff use of jose lift, and sat up for 2 hours. AFter that time, he was able with 1 staff member assisting, to transfer back into the bed. He is now also weaned down to 2 l/min of oxygen. Refused to work with occupational therapy this evening. Also declined lunch and dinner; states that hospital food is terrible.
--- NOTE | 2021-03-04 06:45 | NUR ---
SHIFT SUMMARY PATIENT ALERT AND ORIENTED T/O SHIFT. REMAINS ON 2L NC WITH OXYGEN SATURATION ABOVE 90%. DENIES CHEST PAIN OR PRESSURE. PATIENT ABLE TO TURN SELF IN BED. ATTENDS IN PLACE FOR URINE INCONTINENCE. PATIENT REFUSES ATTENDS CHANGE AT TIMES BUT ALLOWS STAFF TO ASSIST WITH BRIEF CHANGES ON HIS TERMS. NO OTHER SIGNIFICANT CHANGES TO PATIENT'S STATUS. WILL REPORT TO DAY SHIFT RN.
--- NOTE | 2021-03-04 09:22 | NUR ---
weaned to 6 l/min n.c. delivery.
--- NOTE | 2021-03-04 09:31 | NUR ---
TURNED BACK TO 8 L/MIN.
--- NOTE | 2021-03-04 09:49 | NUR ---
Pt was initially disagreeable to the idea of getting out of bed to chair. He also quipped, "Well what are you going to do, carry me?" He was reminded that he walked from the recliner to the bed yesterday without difficulty. Encouraged activity to help his lung healing and get closer to going home. He agreed to get OOB to recliner for breakfast. Showed no dyspnea but did have significant hypoxia to 77% at one point, without any distress or any awareness of his breathing not being WNL, while he was eating breakfast. he was encouraged to take bites more slowly, with breaks for breathing in between but he responded with sarcasm and disparaging remarks and did not want to comply. His oxygen was increased to 15 l/min by Mike, the RT who was also with the patient at the time. After he finished eating I was able to wean the oxygen down to 8 l/min while he was still sitting up in the chair, an hour and half afterwards.
--- NOTE | 2021-03-04 10:03 | NUR ---
HE IS INCONTINENT OF URINE, BUT REFUSING tO LET STAFF KNOW WHEN HE HAS BEEN INCONTINENT. UNCLEAR TO WHETHER oR NOT HE ACTUALLY IS AWARE WHEN THE INCONTNENCE OCCURS.
--- NOTE | 2021-03-04 10:46 | NUR ---
Pt is holding steady spo2 at rest while on 8 l/min oxygen delivery. He stood out of recliner with staff standing by, to change his attends and reposition in the chair. Noted spo2 dropped to 87% but recovery after rest for 1-2 minutes, without any modification of the oxygen delivery.
--- NOTE | 2021-03-04 12:14 | NUR ---
pt refusing lunch. States that he only eats breakfast at home, also.
--- NOTE | 2021-03-04 12:18 | NUR ---
Pt is sleeping in recliner, spo2 95% on 4 l/min nasal cannula.
--- NOTE | 2021-03-04 17:58 | NUR ---
1 PERSON STANDBY ASSIST TO STAND AND TRANSFER. PT WAS INCONTINENT OF URINE. ATTENDS SOAKED WITH URINE. ATTENDS CHANGED, CHANTAL CARE GIVEN.
--- NOTE | 2021-03-05 08:29 | NUR ---
OOB to chair, minimal assistance required. Pt's attends removed, soaked with urine. Phoebe care given and clean attends placed on him before he transferred to the recliner chair at bedside. Walker was in use but pt hardly used it for support. Hypoxia during the activity of transfer was to 88% spo2, no dyspnea, no distress, no anxiety. Recovery without changes to O2 dose after sitting. SIgnificant hypoxia without any noticeable distress nor accessory muscle use nor dyspnea noted during activity of eating while up in chair. Recovered pt on 15 l/min hi flow oxygen, then titrated back down to 4 l/min after he was finished eating.
[2021-03-05 08:51] LABS: Hematocrit 45.4 % (37.0-53.0); Hemoglobin 15.7 g/dL (13.5-17.5); Mean Corpuscular HGB 31.9 pg (26.0-34.0); Mean Corpuscular HGB Conc 34.6 g/dL (31.5-36.5); Mean Corpuscular Volume 92 fL (80-100); Mean Platelet Volume 11.4 fL (9.1-12.4); Platelet Count 317 K/mm3 (150-400); RDW Coefficient Variation 13.4 % (11.7-14.2); RDW Standard Deviation 46.4 fL (35.1-46.3); Red Blood Cell Count 4.92 M/mm3 (4.30-5.90); White Blood Cell Count 17.84 K/mm3 (4.00-11.30)
[2021-03-05 09:24] LABS: Alanine Aminotransfer (ALT/SGP 61 U/L (12-78); Albumin, Blood 2.8 g/dL (3.4-5.0); Albumin/Globulin Ratio 0.6 (0.8-1.8); Alk Phos 179 U/L (50-136); Anion Gap 8 mmol/L (6-16); Aspartate Aminotrans (AST/SGOT 30 U/L (12-37); Bilirubin, Total 1.2 mg/dL (0.1-1.0); Blood Urea Nitrogen 65 mg/dL (8-24); Bun/Creatinine Ratio 61.3 (12.0-20.0); CO2, Blood 26 mmol/L (21-32); Calcium, Blood 9.5 mg/dL (8.5-10.1); Chloride, Blood 98 mmol/L (98-108); Creatinine, Blood 1.06 mg/dL (0.60-1.20); Globulin, Blood 4.6 g/dL (2.2-4.0); Glomerular Filtration Rate >60 (60-); Glucose, Blood 109 mg/dL (70-99); Magnesium, Blood 2.1 mg/dL (1.6-2.4); Potassium, Blood 4.9 mmol/L (3.5-5.5); Sodium, Blood 132 mmol/L (136-145); Total Protein, Blood 7.4 g/dL (6.4-8.2)
--- NOTE | 2021-03-05 11:40 | NUR ---
Pt is sitting up in chair. Grumpy, angry and yelling at staff. Dressing change to powerglide right upper arm completed. Pt declined assistance with repositioning / extra pillows, etc.
--- NOTE | 2021-03-06 06:18 | NUR ---
SHIFT SUMMARY PATIENT FOUND TO BE AN IRRITIABLE MAN WHO IS A&0X4 WITH FORGETFULLNESS AND GEN WEAKNESS. GROUCHY AND WANTED TO BE LEFT ALONE MUCH POSSIBLE. NO TELE. VSS. ON 4L NC SATING MID 90'S. TOLERATING MECH SOFT DIET BUT POOR APPETITE AND NEEDS ENCOURAGMENT ON PROPER FOOD CHOICES. MEDS IN APPLE SAUCE. BOWEL REGIMEN STARTED BUT PATIENT RELUCTANT TO START AND GOT ANGRY WHEN RN SUGGESTED THIS. WAS ABLE TO CONVINCE TO TAKE BUT NO BM SO FAR. STATED HE WAS NO UNCOMFORTABLE. INCONTINENT OF URINE. FRESH ATTENDS IN PLACE. CALLS APPROPRIATLY WHEN INCONTINENT. NO ACUTE CONCERNS AT THIS TIME. WILL CONTINUE PLAN OF CARE UNTIL REPORT GIVEN TO DAYSHIFT RN.
[2021-03-06] MEDS ORDERED: Acetaminophen325 M1 PO (12:35)
[2021-03-06] MEDS ORDERED: DOCU100 PO (12:36)
[2021-03-06] MEDS ORDERED: OLUMIANT2 MG PO (12:36)
[2021-03-06] MEDS ORDERED: XARELTO20 MG PO (12:37)
[2021-03-06] MEDS ORDERED: SENN187 PO (12:38)
[2021-03-06] MEDS ORDERED: B-1100 M1 PO (12:38)
--- NOTE | 2021-03-06 14:53 | NUR ---
REPORT GIVEN TO GISELE MONTENEGRO FOR TRANSFER.
== END 2021-03-06 13:52 | disposition home or self-care (01) | DRG 177 ==
LOC: ER 09:50 → PCU 09:51 → ICUE 09:51 → PCU 03-02 18:02
PROVIDERS: Family Medicine; Internal Medicine; Nurse Practitioner Acute Care; ADMIT Internal Medicine
PROC: 8E0ZXY6 Isolation (ICD-10-PCS; 2021-02-19)
PROC: XW033E5 Introduction of Remdesivir Anti-infective into Peripheral Vein, Percutaneous Approach, New Technology Group 5 (ICD-10-PCS; principal; 2021-02-20)
PROC: 3E0DX3Z Introduction of Anti-inflammatory into Mouth and Pharynx, External Approach (ICD-10-PCS; 2021-02-20)
PROC: 5A0945A Assistance with Respiratory Ventilation, 24-96 Consecutive Hours, High Flow/Velocity Cannula (ICD-10-PCS; 2021-02-24)
PROC: XW0DXM6 Introduction of Baricitinib into Mouth and Pharynx, External Approach, New Technology Group 6 (ICD-10-PCS; 2021-03-02)
PROC: 5A09357 Assistance with Respiratory Ventilation, Less than 24 Consecutive Hours, Continuous Positive Airway Pressure (ICD-10-PCS; 2021-03-03)
DX: U07.1 COVID-19 (principal); J96.01 Acute respiratory failure with hypoxia; J69.0 Pneumonitis due to inhalation of food and vomit; J12.82 Pneumonia due to coronavirus disease 2019; I47.2 Ventricular tachycardia; K86.0 Alcohol-induced chronic pancreatitis; E87.6 Hypokalemia; D69.6 Thrombocytopenia, unspecified; F10.20 Alcohol dependence, uncomplicated; E11.65 Type 2 diabetes mellitus with hyperglycemia; Z88.8 Allergy status to other drugs, medicaments and biological substances; E83.42 Hypomagnesemia; D72.810 Lymphocytopenia; I10 Essential (primary) hypertension; K21.9 Gastro-esophageal reflux disease without esophagitis; J44.9 Chronic obstructive pulmonary disease, unspecified; N40.0 Benign prostatic hyperplasia without lower urinary tract symptoms; Z98.890 Other specified postprocedural states; Z79.82 Long term (current) use of aspirin; Z79.4 Long term (current) use of insulin; Z79.899 Other long term (current) drug therapy; E66.9 Obesity, unspecified; I48.0 Paroxysmal atrial fibrillation; K74.60 Unspecified cirrhosis of liver; K86.89 Other specified diseases of pancreas; Z87.891 Personal history of nicotine dependence
CPT/HCPCS: 0202U; 36415; 51702; 71045; 80048; 80053; 80069; 81001; 82947; 83605; 83735; 84145; 84443; 85025; 85027; 87040; 87086; 92526; 92610; 93005; 93010; 94640; 94660; 94664; 94760; 94762; 96365; 96366; 96367; 96372; 96375; 96376; 97110; 97112; 97116; 97162; 97166; 97530; 97535; 99285-25; A9270; C1751; C9399; G0378; J0295; J0360; J1650; J1815; J1940; J2060; J2930; J3411; J3475; J3480; J7042; J7050

== ENCOUNTER → 2021-03-11 | Outpatient (CLI) | payer MEDICARE ==
[~2021-03-11] MED LIST changes: +ALBU90OI6 INH; +ASPI81CH PO; +ATOR10 PO; +Acetaminophen325 M1 PO; +B-1100 M1 PO; +B-1100 MG PO; +BASAGLAR K100 UNIT/3 SC; +CEFU500T30 PO; +FERSU300 PO; +INGREZZA40 MG PO; +LEVE500 PO; +LEVFLO500 PO; +METO25 PO; +OLUMIANT2 MG PO; +ONDA4ODT MM; +SENN187 PO; +Serevent Disku50 MCG IH; +TAMS.4ER PO; +TRELEGY ELLIPT1 EACH INH; +VITAMIN C PO; +XARELTO20 M1 PO; +XARELTO20 MG PO
[2021-03-11 14:51] LABS: Hematocrit 31.1 % (37.0-53.0); Hemoglobin 10.6 g/dL (13.5-17.5); Mean Corpuscular HGB 31.6 pg (26.0-34.0); Mean Corpuscular HGB Conc 34.1 g/dL (31.5-36.5); Mean Corpuscular Volume 93 fL (80-100); Mean Platelet Volume 12.3 fL (9.1-12.4); Platelet Count 160 K/mm3 (150-400); RDW Coefficient Variation 13.4 % (11.7-14.2); RDW Standard Deviation 45.6 fL (35.1-46.3); Red Blood Cell Count 3.35 M/mm3 (4.30-5.90); White Blood Cell Count 7.72 K/mm3 (4.00-11.30)
[2021-03-11 15:05] LABS: Albumin, Blood 2.1 g/dL (3.4-5.0); Albumin/Globulin Ratio 0.6 (0.8-1.8); Bilirubin, Total 0.5 mg/dL (0.1-1.0); Bun/Creatinine Ratio 43.3 (12.0-20.0); Calcium, Blood 8.4 mg/dL (8.5-10.1); Creatinine, Blood 1.87 mg/dL (0.60-1.20); Globulin, Blood 3.8 g/dL (2.2-4.0); Potassium, Blood 5.5 mmol/L (3.5-5.5); Total Protein, Blood 5.9 g/dL (6.4-8.2)
== END | disposition home or self-care (01) ==
LOC: EDSTATUS 12:20 → LAB RH 13:09
PROVIDERS: Internal Medicine
DX: U07.1 COVID-19 (principal)
CPT/HCPCS: 80053; 85027

== ENCOUNTER 2021-04-07 16:11 | Inpatient (IN) | payer MEDICARE ==
[~2021-04-07] VITALS: Ht 172.7 cm; Wt 94.1 kg
[~2021-04-07 16:11] MED LIST changes: -ASPI81CH PO; -ATOR10 PO; -FERSU300 PO; -LEVE500 PO; -LEVFLO500 PO; +Prinivil10 MG PO; -TRELEGY ELLIPT1 EACH INH; -VITAMIN C PO
[2021-04-07 17:17] LABS: Hematocrit 28.5 % (37.0-53.0); Hemoglobin 9.3 g/dL (13.5-17.5); Mean Corpuscular HGB 30.9 pg (26.0-34.0); Mean Corpuscular HGB Conc 32.6 g/dL (31.5-36.5); Mean Corpuscular Volume 95 fL (80-100); Mean Platelet Volume 11.4 fL (9.1-12.4); NRBC ABSOLUTE 0.02 K/mm3 (0.00-0.02); NRBC Auto 0.2 /100 WBC (0.0-0.2); Platelet Count 233 K/mm3 (150-400); RDW Standard Deviation 47.9 fL (35.1-46.3); Red Blood Cell Count 3.01 M/mm3 (4.30-5.90); White Blood Cell Count 10.82 K/mm3 (4.00-11.30)
[2021-04-07 17:37] LABS: Alanine Aminotransfer (ALT/SGP 18 U/L (12-78); Albumin, Blood 2.6 g/dL (3.4-5.0); Albumin/Globulin Ratio 0.7 (0.8-1.8); Alk Phos 152 U/L (50-136); Anion Gap 13 mmol/L (6-16); Aspartate Aminotrans (AST/SGOT 24 U/L (12-37); Bilirubin, Total 0.4 mg/dL (0.1-1.0); Blood Urea Nitrogen 12 mg/dL (8-24); Bun/Creatinine Ratio 11.5 (12.0-20.0); CO2, Blood 18 mmol/L (21-32); Calcium, Blood 6.6 mg/dL (8.5-10.1); Chloride, Blood 112 mmol/L (98-108); Creatinine, Blood 1.04 mg/dL (0.60-1.20); Globulin, Blood 3.7 g/dL (2.2-4.0); Glomerular Filtration Rate >60 (60-); Glucose, Blood 230 mg/dL (70-99); Sodium, Blood 143 mmol/L (136-145); Total Protein, Blood 6.3 g/dL (6.4-8.2)
[2021-04-07 17:47] LABS: BAND PERCENT MAN 11 % (0-8); BASOPHILS PERCENT MAN 1 % (0-2); EOSINOPHILS PERCENT MAN 0 % (0-6); LYMPHOCYTES ABSOLUTE MAN 0.97 K/mm3 (0.84-5.20); LYMPHOCYTES PERCENT MAN 9 % (21-46); METAMYELOCYTE ABSOLUTE MAN 0.21 K/mm3 (0.00-0.00); METAMYELOCYTE PERCENT MAN 2 % (0-0); MONOCYTES ABSOLUTE MAN 0.32 K/mm3 (0.16-1.47); MONOCYTES PERCENT MAN 3 % (4-13); MYELOCYTE ABSOLUTE MAN 0.32 K/mm3 (0.00-0.00); MYELOCYTE PERCENT MAN 3 % (0-0); NEUTROPHILS ABSOLUTE MAN 8.87 K/mm3 (1.96-9.15); SEG NEUTROPHILS PERCENT MAN 71 % (41-73); TOTAL CELLS COUNTED 100
[2021-04-08 05:04] LABS: Anion Gap 7 mmol/L (6-16); Blood Urea Nitrogen 13 mg/dL (8-24); Bun/Creatinine Ratio 11.3 (12.0-20.0); CO2, Blood 22 mmol/L (21-32); Calcium, Blood 6.1 mg/dL (8.5-10.1); Chloride, Blood 115 mmol/L (98-108); Creatinine, Blood 1.15 mg/dL (0.60-1.20); Glomerular Filtration Rate >60 (60-); Glucose, Blood 69 mg/dL (70-99); Sodium, Blood 144 mmol/L (136-145)
--- NOTE | 2021-04-08 05:06 | NUR ---
ADMISSION: PT ARRIVED TO FLOOR @ 2036 AND WAS SCOOTED INTO BED. HE SEEMED TO BE IN A POSTICTAL, ALTHOUGH NOT SURE WHAT THE PT's BASELINE IS. HE DOES HAVE SOME GARBLED SPEECH, BUT CAN BE UNDERSTOOD. HE ARRIVED ON 4L OF O2, BUT NEEDED TO BE INCREASED TO 6L TO STAY ABOVE 90%. VIA TELE MONITOR HE HAS BEEN ST/88. NO SKIN ISSUES TO REPORT; HE WAS INCONTINENT OF BLADDER/BOWEL. HIS LACTIC ACID WAS ELEVATED, BUT TRENDING DOWN. SEIZURE PADS ARE IN PLACE, BED IS IN LOWEST POSITION AND CALL LIGHT IS WITHIN REACH. WE'LL CONTINUE TO MONITOR THE REMAINDER OF THE SHIFT.
--- NOTE | 2021-04-08 05:15 | NUR ---
SHIFT SUMMARY: PT SEEMS TO BE MORE ORIENTED (3-4) THROUGHOUT THE SHIFT. HE DID REMAIN BEDBOUND. HE IS TOLERATING H20 VERY WELL AND CAN TAKE PILLS WHOLE. HE IS ON 5-6L OF O2 STAYING >90%. THE PT'S MED REC WAS NOT COMPLETE; HE STATED THAT HIS TAKES CARE OF HIS DAILY MEDICATIONS. CALL LIGHT IS WITHIN REACH.
[2021-04-08] MEDS ORDERED: ATOR10 PO (11:24)
[2021-04-08] MEDS ORDERED: CREON DR 24,001 EACH PO (11:25)
[2021-04-08 15:43] LABS: C-REACTIVE PROTEIN, EXT RANGE 11.4 mg/dL (0.000-0.300)
--- NOTE | 2021-04-08 17:11 | NUR ---
PT TRANSFERED 1540 TO PCU DUE TO CHANGES IN O2 NEEDS INCREASING TO 10l HIGH FLOW AND RAPID HR IN THE 120s VERIFIED WITH ACUPRESSURE THERAPIST. PT HAS HAD INCREASED TREMORS OF HIS UPPER EXTREMETIES AND INCREASED TEMP 101.4 WAS THE HIGHEST AFTER RECIEVING TYLENOL. ICE PACKS WERE ALSO APPLIED IN AN ATTEMPT TO KEPT TEMP UNDER CONTROL. LAST BP WAS 99.7 ORAL PRIOR TO TRANFER. DR NIELSEN WAS MADE AWARE OF SITUATION PT'S WAS HAVING MORE PROBLEMS. SHE DECIDED PT SHOULD TRANFER TO PCU. REPORT CALLED PRIOR TO PT TRANSFER. PT HAS BEEN AOX2-3 AND A BIT GRUFF WITH HIS INTERACTION AND CARE. PT WAS INCONTENT OF BOWEL AND BLADDER AND DID NOT FEEL THE NEED TO TELL ANYONE WHEN HE NEEDED CHANGED.
--- NOTE | 2021-04-08 18:05 | NUR ---
SHIFT SUMMARY: PATIENT TRANSFER TO PCU AROUND 1600. VITALS SIGNS STABLE. ABLE TO ANSWER ALL ORIENTING QUESTIONS. FORGETFUL AND AT TIMES HARD TO UNDERSTAND. SPOKE WITH ON PHONE AND PROVIDED UPDATE. OVERALL WEAKNESS. BILATERAL EMD TEACHER STRENGTH. ABLE TO MOVE ALL EXTREMITIES. ON 10L HIGH FLOW SATING LOW 90'S. AT TIMES MOUTH BREATHING. LUNGS SOUNDING COARSE. TELE SHOWING SINUS TACH WITH HR 110'S. DENIES CHEST PAIN/PRESSURE. STRONG PULSES. NO SIGNS OF EDEMA. BP STABLE. AT TIME OF TRANSFER NS AND MAG INFUSING. DR. NIELSEN CALLED TO UPDATE ON RECENT LAB RESULTS. NEW ORDERS TO STOP NS FLUIDS AND GIVE EXTRA DOSE OF IV LASIX X1. EEG DONE IN ROOM. ACHS BLOOD SUGARS. BEDREST AT THIS TIME. TEMP 101.0 UPON ARRIVAL. ICE PACKS IN ARM PITS AND GROIN. TYLENOL RECENTLY GIVEN. PATIENT ORAL TEMP DOWN TO 98.1. CALL LIGHT IN REACH. PATIENT NOT USING CALL LIGHT. WILL CONTINUE TO MONITOR AND REPORT OFF. SIEZURES PRECAUTIONS IN PLACE. SUCTION SET UP AT BEDSIDE. BED IN LOW/LOCKED POSITION. BED ALARM ON FOR SAFETY.
--- NOTE | 2021-04-09 00:06 | NUR ---
UPDATE PT BECAME VERY TREMULOUS AND SOB W O2 SATS <85% ON 15L NC. PT'S HR >130 AND BP ELEVATED W SBP IN THE 150'S. PROVIDER CONTACTED AND PT PLACED ON BIPAP W 40MG LASIX GIVEN. PT RR SLOWING DOWN ON BIPAP AND HR IS NOW DOWN TO 120. PT RESTING IN NO DISTRESS AT THIS TIME.
[2021-04-09 01:04] LABS: Source, Urine Foley catheter
[2021-04-09 01:07] LABS: Bilirubin, Urine Neg (Neg); Blood, Urine Neg (Neg); Glucose Qualitative, Urine Neg (Neg); Ketones, Urine Neg (Neg); Leukocyte Esterase, Urine 1+ (Neg); Nitrite, Urine Neg (Neg); Protein, Urine Neg (Neg); Specific Gravity, Urine 1.015 (1.003-1.022); Urobilinogen, Urine NORM (Normal)
[2021-04-09 01:37] LABS: Appearance, Urine Clear (Clear); Color, Urine Yellow (P-Yellow)
[2021-04-09 01:38] LABS: Bacteria Mod /hpf; Red Blood Cells, Urine 0-2 /hpf (0-2); Squamous Epithelial Cells Rare /hpf (Few)
[2021-04-09 04:09] LABS: Hematocrit 25.9 % (37.0-53.0); Hemoglobin 8.2 g/dL (13.5-17.5); Mean Corpuscular HGB 29.9 pg (26.0-34.0); Mean Corpuscular HGB Conc 31.7 g/dL (31.5-36.5); Mean Corpuscular Volume 95 fL (80-100); Mean Platelet Volume 11.7 fL (9.1-12.4); Platelet Count 169 K/mm3 (150-400); RDW Coefficient Variation 14.5 % (11.7-14.2); RDW Standard Deviation 50.3 fL (35.1-46.3); Red Blood Cell Count 2.74 M/mm3 (4.30-5.90); White Blood Cell Count 11.47 K/mm3 (4.00-11.30)
--- NOTE | 2021-04-09 05:45 | NUR ---
SNOW MAKER SUMMARY PT IS AXO BUT GETS CONFUSED EASILY OFTEN REPEATING HIMSELF. PT HAD ONE EPSIODE SIMILAR TO THE ONE THAT WAS DESCRIBED FROM MEDICAL FLOOR WHERE HE BECAME TREMULOUS W O2 SATS <85% ON 15L NC AND A HR >140. ORAL TEMP AT THAT TIME WAS 97.9 W ELEVATED BP. PT PLACED ON CPAP AND LASIX GIVEN HOWEVER THE PT ONLY HAD 200ML OUTPUT IN THE LAST 6 HOURS OF THE SHIFT FOLLOWING 40MG LASIX. TELE SHOWING ST IN THE 100'S THE REST OF THE SHIFT. WILL REPORT TO ONCOMING RN.
[2021-04-09 06:48] LABS: Albumin, Blood 2.4 g/dL (3.4-5.0); Albumin/Globulin Ratio 0.8 (0.8-1.8); Bilirubin, Total 1.2 mg/dL (0.1-1.0); Bun/Creatinine Ratio 11.9 (12.0-20.0); Calcium, Blood 6.1 mg/dL (8.5-10.1); Creatinine, Blood 1.6 mg/dL (0.60-1.20); Globulin, Blood 3.1 g/dL (2.2-4.0); Potassium, Blood 4.5 mmol/L (3.5-5.5); Total Protein, Blood 5.5 g/dL (6.4-8.2)
--- NOTE | 2021-04-09 07:47 | NUR ---
CARE ASSUMPTION: PT ALERT AND ORIENTED X3. FORGETFUL AT TIMES. STATES HE IS AT [facility]. ABLE TO MOVE ALL EXTREMITIES IN BED. EQUAL BILATERAL LEAD TINNER STRENGTH. PERRLA. DENIES NUMBNESS/TINGLING. Q2 TURNING IN BED. BEDREST AT THIS TIME. SEIZURE PRECAUTIONS IN PLACE. SUCTIONS AT BEDSIDE. TELE SHOWING SINUS RHYTHM TO SINUS TACH. HR 90-110'S. DENIES CHEST PAIN/PRESSURE. BP ON SOFTER SIDE. NO SIGNS OF EDEMA. ON CPAP AT 14 AND 30%, SATING MID 90'S. LUNGS SOUNDING DIMINISHED. DENIES ABDOMINAL PAIN/NAUSEA. MODERATE DISTENTION. PATEL CATH IN PLACE DRAINING TO GRAVITY. MINIMAL URINE OUTPUT. REPORTS OVER NIGHT, LOOSE STOOLS. SKIN OVERALL C/D/I. REDNESS TO COCCYX. IV SALINE LOCKED AND FLUSHED. ACHS BLOOD SUGARS. CALL LIGHT IN REACH. PATIENT SLEEPING AT THIS TIME. WILL CONTINUE TO MONITOR.
--- NOTE | 2021-04-09 15:30 | NUR ---
UPDATE: PATIENT ON HIGH FLOW NASAL CANNULA THROUGHOUT MORNING AND AFTERNOON. STARTING TO DESAT IN LOW 80'S. CPAP IN PLACE AT 14 AND 30% FIO2, NOW SATING 90-92%. TEMP INCREASED TO 99.6, PATIENT STARTING TO GET TREMULOUS. DR. NIELSEN UPDATED. IV FLUIDS STOPPED AT THIS TIME. BLOOD PRESSURE STABLE. WILL CONTINUE TO MONITOR.
--- NOTE | 2021-04-09 18:22 | NUR ---
SHIFT SUMMARY: NO CHANGES IN NEURO. PATIENT REMAINS ALERT AND ORIENTED X3-4. FORGETFUL AT TIMES. TELE REMAINS SINUS RHYTHM - SINUS TACH. BP STABLE. DENIES CHEST PAIN/PRESSURE. ABLE TO TITRATE BACK TO HIGH FLOW NASAL CANNULA AT 10L, SATING MID 90'S. CPAP ON STANDBY. SEE PREVIOUS NOTES. PATEL CATH REMAINS IN PLACE DRAINING CLEAR/RODY URINE. 500ML OUT THIS SHIFT. SMALL BM THIS EVENING SENT TO LAB FOR 1 OUT OF 3 OF THE GUAIC STOOL TESTS. NEW MEPILEX IN PLACE. PATIENT TOLERATING PO DIET. REFUSES TURNS AND MOVING IN BED. VANCO INFUSING AT THIS TIME. CALL LIGHT IN REACH. SPOKE WITH ON PHONE AND GAVE UPDATE. WILL CONTINUE TO MONITOR AND REPORT OFF.
[2021-04-09 22:16] LABS: Stool Occult Blood Guaiac 1 Pos (Neg)
[2021-04-10 04:19] LABS: Hematocrit 24.9 % (37.0-53.0); Hemoglobin 7.9 g/dL (13.5-17.5); Mean Corpuscular HGB Conc 31.7 g/dL (31.5-36.5); Mean Corpuscular Volume 95 fL (80-100); Mean Platelet Volume 11.4 fL (9.1-12.4); Platelet Count 159 K/mm3 (150-400); RDW Coefficient Variation 14.5 % (11.7-14.2); RDW Standard Deviation 49.8 fL (35.1-46.3); Red Blood Cell Count 2.63 M/mm3 (4.30-5.90); White Blood Cell Count 6.29 K/mm3 (4.00-11.30)
[2021-04-10 04:47] LABS: Alanine Aminotransfer (ALT/SGP 12 U/L (12-78); Albumin, Blood 2.2 g/dL (3.4-5.0); Albumin/Globulin Ratio 0.6 (0.8-1.8); Alk Phos 173 U/L (50-136); Anion Gap 7 mmol/L (6-16); Aspartate Aminotrans (AST/SGOT 13 U/L (12-37); Bilirubin, Total 0.9 mg/dL (0.1-1.0); Blood Urea Nitrogen 19 mg/dL (8-24); Bun/Creatinine Ratio 16.8 (12.0-20.0); CO2, Blood 21 mmol/L (21-32); Calcium, Blood 6.1 mg/dL (8.5-10.1); Chloride, Blood 107 mmol/L (98-108); Creatinine, Blood 1.13 mg/dL (0.60-1.20); Globulin, Blood 3.4 g/dL (2.2-4.0); Glomerular Filtration Rate >60 (60-); Glucose, Blood 163 mg/dL (70-99); Potassium, Blood 3.7 mmol/L (3.5-5.5); Sodium, Blood 135 mmol/L (136-145); Total Protein, Blood 5.6 g/dL (6.4-8.2)
--- NOTE | 2021-04-10 05:01 | NUR ---
PHONE CALL PLACED TO PHYSICIAN REPORTED TO DR. FERRELL A POSITIVE GUAIAC RESULT, HGB 7.9. PHYSICIAN WITH NO ORDERS AT THIS TIME.
--- NOTE | 2021-04-10 05:03 | NUR ---
PAZ'S OXYGEN RATE WAS TITRATED DOWN TO 8LPM VIA HIFLOW HUMIDIFIED NASAL CANULA , AND HE WAS ABLE TO MAINTAIN SATS 92-96% WHILE SLEEPING. TELEMETRY MONITORED HEART RATE IN THE 90'S. REMAINED AFEBRILE. NO SEIZURE ACTIVITY NOTED. A&O X3, AT TIMES CAN REQUIRE CUEING, COAXING OR REDIRECTING TO TAKE MEDICATION OR PARTICIPATE IN CARE. POSITIVE GUIAC STOOL RESULT REPORTED TO DR. FERRELL, WHO HAD NO ORDERS AT THIS TIME. PATEL IN PLACE DRAINING YELLOW URINE. VSS, NO ACUTE CHANGES.
[2021-04-10 08:54] LABS: Stool Occult Blood Guaiac 1 Pos (Neg)
--- NOTE | 2021-04-10 10:22 | NUR ---
DR. DIAZ CALLED AT THIS TIME FOR GI CONSULT.
--- NOTE | 2021-04-10 12:10 | NUR ---
ASSISTED PATIENT BACK TO BED AFTER EATING LUNCH IN CHAIR. PT POSITIONED ON RIGHT SIDE, HEAD ELEVATED, BED ALARM ON FOR SAFETY AND CALL LIGHT/PHONE IN REACH.
--- NOTE | 2021-04-10 16:59 | NUR ---
PREVENTATIVE MEPILEX TO COCCYX CHANGED AT THIS TIME. NO SKIN BREAKDOWN NOTED. PT HAD MEDIUM SOFT BROWN BM, NO BLOOD NOTED.
--- NOTE | 2021-04-10 17:01 | NUR ---
DR. DIAZ SAW PT AT ABOUT 1640, SEE NEW ORDERS.
--- NOTE | 2021-04-10 17:16 | NUR ---
SUMMARY: NO ACUTE CHANGE TODAY. VSS, A/O, FORGETFUL..BED ALARM SET. ABLE TO WEAN 02 TO 6L AT 93%. PT DENIES SOB, FLUTTER VALVE ENCOURAGED, COUGH IS WEAK AND UNPRODUCTIVE. PT IS DECONDITIONED, ABLE TO SIT UP IN CHAIR FOR ABOUT IN HOUR BEFORE GETTING BACK IN BED DUE TO CHRONIC BACK PAIN. MOBILITY ENCOURAGED, PT TURNED Q2. HAD X1 INCONTINENT BM, PER DR. DIAZ NO ADDITIONAL GUAIAC NEEDED. PATEL DRAINING. PLAN IS TO WAIT FOR RESPIRATORY STATUS IMPROVEMENT BEFORE ENDOSCOPY. WILL CTM AND REPORT TO NOC RN.
[2021-04-10 17:45] LABS: Vancomycin, Trough 15.3 ug/mL (5.0-10.0)
[2021-04-11 03:40] LABS: Hematocrit 25.2 % (37.0-53.0); Hemoglobin 8.2 g/dL (13.5-17.5); Mean Corpuscular HGB 30.5 pg (26.0-34.0); Mean Corpuscular HGB Conc 32.5 g/dL (31.5-36.5); Mean Corpuscular Volume 94 fL (80-100); Mean Platelet Volume 11.6 fL (9.1-12.4); Platelet Count 148 K/mm3 (150-400); RDW Standard Deviation 47.3 fL (35.1-46.3); Red Blood Cell Count 2.69 M/mm3 (4.30-5.90); White Blood Cell Count 3.56 K/mm3 (4.00-11.30)
[2021-04-11 03:58] LABS: Alanine Aminotransfer (ALT/SGP 11 U/L (12-78); Albumin/Globulin Ratio 0.6 (0.8-1.8); Alk Phos 169 U/L (50-136); Anion Gap 7 mmol/L (6-16); Aspartate Aminotrans (AST/SGOT 14 U/L (12-37); Bilirubin, Total 0.8 mg/dL (0.1-1.0); Blood Urea Nitrogen 11 mg/dL (8-24); Bun/Creatinine Ratio 13.4 (12.0-20.0); CO2, Blood 23 mmol/L (21-32); Calcium, Blood 6.8 mg/dL (8.5-10.1); Chloride, Blood 108 mmol/L (98-108); Creatinine, Blood 0.82 mg/dL (0.60-1.20); Globulin, Blood 3.5 g/dL (2.2-4.0); Glomerular Filtration Rate >60 (60-); Glucose, Blood 179 mg/dL (70-99); Potassium, Blood 3.9 mmol/L (3.5-5.5); Sodium, Blood 138 mmol/L (136-145); Total Protein, Blood 5.5 g/dL (6.4-8.2)
--- NOTE | 2021-04-11 05:44 | NUR ---
SHIFT SUMMARY PATIENT REMAINS ALERT BUT FORGETFUL AT TIMES. VSS. PATIENT ON 8L NC WITH O2 SATS ABOVE 90%. DENIES SOB. PATEL REMAINS IN PLACE DRAINING DARK YELLOW URINE. NO BM THIS SHIFT. REFUSES TURNS FOR RN ONCOLOGY RESEARCH STAFF. EDUCATED PATIENT ON IMPORTANCE OF TURNS BUT PATIENT STATES "LEAVE ME LIKE THIS, I WANT TO SLEEP". PATIENT SLEPT FOR MAJORITY OF NIGHT. NO ACUTE CHANGES THIS SHIFT. WILL REPORT TO DAY SHIFT RN.
--- NOTE | 2021-04-11 17:58 | NUR ---
END OF SHIFT SUMMARY: PATIENT REFUSES ALMOST ALL Q2 TURNS, REEDUCATED AND WAS ALLOWED TO DO MICRO REPOSITIONS, WITH A COUPLE BOOSTS, AND SOME MAJOR REPOSITIONS. PATIENT WAS SUPPOSE TO HAVE A MRI, MRI TEAM WAS VERY BUSY DID NOT TAKE PLACE TODAY. ERICK HAS BEEN COOPERATIVE WITH MEDICATIONS, VITALS, BUT NOT REPOSITIONING. DR. DIAZ PLAN FOR EGD NPO AT 0600 04/12/21. PATIENT DENIES CHEST PAIN, CAN BE FORGETFUL, SLEPT FOR MUCH OF THE DAY. STILL ON THE NC 4-6L AT A MOMENT 8L. LUNGS SOUNDS UNCHANGED FROM NIGHT KINDERGARTEN TUTOR. DENIED WANTING TO SIT IN CHAIR, BED BATH, LINEN CHANGES. PATIENT OVERALL PLEASANT, BUT NOT A GREAT PARTICIPATE IN CARE. WILL CONTINUE TO MONITOR
[2021-04-12 04:34] LABS: Hematocrit 25.4 % (37.0-53.0); Hemoglobin 8.1 g/dL (13.5-17.5); Mean Corpuscular HGB 30.1 pg (26.0-34.0); Mean Corpuscular HGB Conc 31.9 g/dL (31.5-36.5); Mean Corpuscular Volume 94 fL (80-100); Mean Platelet Volume 11.6 fL (9.1-12.4); Platelet Count 169 K/mm3 (150-400); RDW Coefficient Variation 13.9 % (11.7-14.2); RDW Standard Deviation 46.9 fL (35.1-46.3); Red Blood Cell Count 2.69 M/mm3 (4.30-5.90); White Blood Cell Count 3.19 K/mm3 (4.00-11.30)
[2021-04-12 04:57] LABS: Alanine Aminotransfer (ALT/SGP 13 U/L (12-78); Albumin/Globulin Ratio 0.6 (0.8-1.8); Alk Phos 158 U/L (50-136); Anion Gap 5 mmol/L (6-16); Aspartate Aminotrans (AST/SGOT 11 U/L (12-37); Bilirubin, Total 0.5 mg/dL (0.1-1.0); Blood Urea Nitrogen 7 mg/dL (8-24); Bun/Creatinine Ratio 8.5 (12.0-20.0); CO2, Blood 27 mmol/L (21-32); Calcium, Blood 7.8 mg/dL (8.5-10.1); Chloride, Blood 107 mmol/L (98-108); Creatinine, Blood 0.82 mg/dL (0.60-1.20); Globulin, Blood 3.6 g/dL (2.2-4.0); Glomerular Filtration Rate >60 (60-); Glucose, Blood 203 mg/dL (70-99); Potassium, Blood 4.4 mmol/L (3.5-5.5); Sodium, Blood 139 mmol/L (136-145); Total Protein, Blood 5.6 g/dL (6.4-8.2)
--- NOTE | 2021-04-12 05:28 | NUR ---
SHIFT SUMMARY PATIENT ALERT BUT FORGETFUL AT TIMES. VSS. PATIENT ON 4-6L OVERNIGHT DUE TO DESAT WHILE SLEEPING, O2 SAT ABOVE 90% OTHERWISE. PATIENT REFUSES MOST OF TURNS, PATIENT EDUCATED ON IMPORTANCE OF PREVENTING SKIN BREAKDOWN. PATEL IN PLACE DRAINING DARK YELLOW URINE. INCONTINENT OF BOWEL. 1 BM THIS SHIFT, NO SIGNS OF BLOOD IN STOOL. PATIENT CURRENTLY NPO FOR POSSIBLE PROCEDURE TODAY. NO OTHER SIGNIFICANT CHANGES THIS SHIFT. WILL REPORT TO DAY SHIFT RN.
--- NOTE | 2021-04-12 09:24 | NUR ---
INTO [facility] VIA GURNEY FROM [facility]. History, Chart, Medications and Allergies reviewed before start of procedure.Patient confirms NPO status and agrees with scheduled surgery.
--- NOTE | 2021-04-12 09:37 | NUR ---
04/12/21 0937 Frances Trammell History, Chart, Medications and Allergies reviewed before start of procedure.MONITOR INTACT WITH CONTINUOUS PULSE OXIMETRY,3 LEAD, AND INTERMITTENT BP.O2 VIA POM INTACT THROUGHOUT SEDATION/PROCEDURE. See Anesthesia record.
--- NOTE | 2021-04-12 10:02 | NUR ---
HELD MORNING MEDICATIONS DUE TO PATINET HAVING AN EGD, PATIENT WAS TRANSPOIRTED AROUND 0918. WILL GIVE UPON RETURN, AND CAN EAT
--- NOTE | 2021-04-12 18:18 | NUR ---
END OF SHIFT: ERICK WAS SECOND IN LINE FO REGD WHERE THERE WAS AN AVM IN THE STOMACH AND WITH CAUTERY WAS FIXED. PATIENT IS NOW MED NO TELE, O2 HAS BEEN MAINLY AT 6-8. BED BATH WAS GIVEN, MRI WAS ALSO PERFORMED. PLEASE SEE IMAGE REPORT. PATIENT WAS NPO MOST OF THE DAY NOT NEEDING INSULIN COVERAGE DUE TO THIS. ERICK HAS BEEN SR TO . MORE COOPERATIVE THAN PREVIOUS DAY. Q2 TURNS I COULD WITH ALL THE TRANSFERING TO DIFFERENT BEDS, FOR IMAGING, AND DAY SURGERY, ETC. PATIENT WAS EVALUATED BEFORE EATING DINNER FOR SWALLOW GAG AND COUGH, WHICH WERE ALL PRESENT AND FOOD WAS GIVEN ROUGHLY 4 HOURS AFTER PROCEDURE DUE TO ERICK BEING SOUND ASLEEP. SPO2 HAS BEEN AN INSSUE ERICK DOES NOT SEE THAT NC IS OUT OR NOT IN THE BOTH NOSTRILS. RECOVERS QUICKLY. WILL CONTINUE TO MONITOR.
[2021-04-13 04:11] LABS: Hematocrit 26.2 % (37.0-53.0); Hemoglobin 8.4 g/dL (13.5-17.5); Mean Corpuscular HGB 29.8 pg (26.0-34.0); Mean Corpuscular HGB Conc 32.1 g/dL (31.5-36.5); Mean Corpuscular Volume 93 fL (80-100); Platelet Count 177 K/mm3 (150-400); RDW Coefficient Variation 13.7 % (11.7-14.2); RDW Standard Deviation 46.9 fL (35.1-46.3); Red Blood Cell Count 2.82 M/mm3 (4.30-5.90); White Blood Cell Count 3.39 K/mm3 (4.00-11.30)
[2021-04-13 04:36] LABS: Anion Gap 6 mmol/L (6-16); Blood Urea Nitrogen 7 mg/dL (8-24); Bun/Creatinine Ratio 9.2 (12.0-20.0); CO2, Blood 27 mmol/L (21-32); Calcium, Blood 8.3 mg/dL (8.5-10.1); Chloride, Blood 105 mmol/L (98-108); Creatinine, Blood 0.77 mg/dL (0.60-1.20); Ferritin, Serum 119 ng/mL (26-388); Glomerular Filtration Rate >60 (60-); Glucose, Blood 205 mg/dL (70-99); Iron Serum 30 ug/dL (65-175); Percent Saturation 16.6 % (20.0-50.0); Potassium, Blood 4.6 mmol/L (3.5-5.5); Sodium, Blood 138 mmol/L (136-145); Total Iron Binding Capacity 181 ug/dL (250-450)
--- NOTE | 2021-04-13 06:25 | NUR ---
SHIFT SUMMARY ASSUMED CARE OF PT FROM ERICK MONTENEGRO AT 0030. PT ALERT AND ORIENTED X3. FORGETFUL AT TIMES. ASLEEP MOST OF NIGHT SINCE CARE ASSUMPTION. PATEL IN PLACE DRAINING YELLOW URINE TO GRAVITY. ON 5L NC MAINTAINING SATS OVER 92%. BP STABLE. PT DENIES PAIN OR DISCOMFORT. IN BED SLEEPING WITH CALL ALARM AT SIDE. WILL CONTINUE TO MONITOR UNTIL REPORT GIVEN TO DAYSHIFT RN
--- NOTE | 2021-04-13 17:20 | NUR ---
TRANSFER SUMMARY: PATINET HAS BEEN UNCHANGED FOR MOST THE DAY, NC5-7L VIA NC, PATIENT WAS MED NO TELE. DENIES CHEST PAIN, OR SOB. ALERT AND ORIENTED TIMES THREE, MRI +04/12 AND EGD WITH CAUTERIZATION ON 04/12. HGB INCREASING, XERALTO RESTARTED NIGHT OF 04/12. PATINET TYPICALLY SR TO ST 90-100 . BM TODAY, CATHETER CARE, Q2 TURNS, GREAT URINE OUTPUT. SCD'S IN PLACE WELL. PATIENT HAD NO CONCERNS OR QUESTIONS REPORT GIVEN TO RECIEVING NURSE. TRANSFERRED VIA BED BY RN AND TWO STUDENTS, MEDS AND CHART ON BED.
--- NOTE | 2021-04-13 17:25 | NUR ---
TRANSFERED PT TRANSFERED TO ROOM 338. ON THE PHONE WITH HIS FAMILY ABOUT HIS ROOM CHANGE. PT GIVEN CALL LIGHT AND ORIENTED TO ROOM. SEIZURE PADS APPLIED TO BED. PT CHANGED & PULLED UP IN BED.
--- NOTE | 2021-04-14 05:01 | NUR ---
PT with seizure activity has no observed seizure activity on oral keppra. He has lip smacking while awake & this movement dislodges oxygen. PT has covid 19 several months ago & attempting to wean oxygen. Refuses cares repositioning related to chronic back pain but declines pain meds says it only hurts when I move. Meds whole in applesauce at risk for aspiration, because he refuses HOB up to safe position for swallow. Rosales cath pantent drains large amts of clear yellow urine.
[2021-04-14 05:34] LABS: Hematocrit 28.1 % (37.0-53.0); Mean Corpuscular HGB 29.5 pg (26.0-34.0); Mean Corpuscular Volume 92 fL (80-100); Mean Platelet Volume 11.2 fL (9.1-12.4); Platelet Count 198 K/mm3 (150-400); RDW Coefficient Variation 13.8 % (11.7-14.2); RDW Standard Deviation 46.1 fL (35.1-46.3); Red Blood Cell Count 3.05 M/mm3 (4.30-5.90); White Blood Cell Count 4.02 K/mm3 (4.00-11.30)
[2021-04-14 06:05] LABS: Alanine Aminotransfer (ALT/SGP 15 U/L (12-78); Albumin, Blood 2.3 g/dL (3.4-5.0); Albumin/Globulin Ratio 0.6 (0.8-1.8); Alk Phos 158 U/L (50-136); Anion Gap 6 mmol/L (6-16); Aspartate Aminotrans (AST/SGOT 12 U/L (12-37); Bilirubin, Total 0.5 mg/dL (0.1-1.0); Blood Urea Nitrogen 6 mg/dL (8-24); Bun/Creatinine Ratio 7.2 (12.0-20.0); CO2, Blood 28 mmol/L (21-32); Calcium, Blood 8.8 mg/dL (8.5-10.1); Chloride, Blood 102 mmol/L (98-108); Creatinine, Blood 0.84 mg/dL (0.60-1.20); Globulin, Blood 3.6 g/dL (2.2-4.0); Glomerular Filtration Rate >60 (60-); Glucose, Blood 227 mg/dL (70-99); Potassium, Blood 4.9 mmol/L (3.5-5.5); Sodium, Blood 136 mmol/L (136-145); Total Protein, Blood 5.9 g/dL (6.4-8.2)
--- NOTE | 2021-04-14 12:20 | NUR ---
PT REFUSING TO SIT UPRIGHT FOR LUNCH PT REFUSED TO SIT UPRIGHT FOR LUNCH. WOULD NOT ALLOW FOR THE BED TO BE RAISED MORE THAN 30 DEGREES. PT INFORMED THAT HE NEEDS TO SIT UPRIGHT A LITTLE MORE FOR IT TO BE SAFE TO EAT. PT STATES "WELL I WONT EAT THEN," THIS RN ENCOURAGED HIM TO SIT UP JUST A LITTLE MORE. PT REPLIED "SCREW THIS" AND "I DONT LIKE YOU" TO THIS RN. TRAY WAS REMOVED FROM ROOM AND PT WAS LEFT ALONE IN BED. CALL LIGHT IN REACH.
[2021-04-14] MEDS ORDERED: LEVE500 PO (16:05)
[2021-04-14] MEDS ORDERED: HUMALOG KW100 UNIT/1 SC (16:05)
--- NOTE | 2021-04-14 17:04 | NUR ---
DISCHARGE PT DISCHARGED AFTER O2 WAS DELIVERED. PT REQUIRED 1L AT REST AND 4L WITH EXERTION. PT CHANGED INTO HIS CLOTHES AND WHEELED DOWN TO BE PICKED UP BY HIS . EDUCATED ON NEW MEDS, FOLLOW UP INSTRUCTIONS, AND HOME O2. IV REMOVED & INTACT.
--- NOTE | 2021-04-15 08:25 | NUR ---
Patient discharged yesterday- 04/14/2021. However, review of patient records today- 04/15/2021 indicates that discharging hospitalist (Dr. Crocker) did not write home health orders upon discharge. No further interventions required. Tricia Gimenez Referral Liaison
== END 2021-04-14 16:59 | disposition home or self-care (01) | DRG 871 ==
LOC: ER 16:11 → MEDS 20:41 → PCU 04-08 14:40 → MEDS 04-08 14:41 → PCU 04-08 15:43 → MEDS 04-13 17:17
PROVIDERS: Internal Medicine; Internal Medicine Gastroenterology; Pharmacist; Physician Assistant; ADMIT Internal Medicine
PROC: 4A00X4Z Measurement of Central Nervous Electrical Activity, External Approach (ICD-10-PCS; 2021-04-08)
PROC: 0W3P8ZZ Control Bleeding in Gastrointestinal Tract, Via Natural or Artificial Opening Endoscopic (ICD-10-PCS; principal; 2021-04-12 09:00)
DX: A41.9 Sepsis, unspecified organism (principal); J18.9 Pneumonia, unspecified organism; I63.9 Cerebral infarction, unspecified; K55.21 Angiodysplasia of colon with hemorrhage; I48.20 Chronic atrial fibrillation, unspecified; K86.1 Other chronic pancreatitis; N39.0 Urinary tract infection, site not specified; E87.2 Acidosis; I50.32 Chronic diastolic (congestive) heart failure; K92.1 Melena; N17.9 Acute kidney failure, unspecified; Z20.822 Contact with and (suspected) exposure to COVID-19; Z53.29 Procedure and treatment not carried out because of patient's decision for other reasons; R65.20 Severe sepsis without septic shock; R56.9 Unspecified convulsions; K21.9 Gastro-esophageal reflux disease without esophagitis; E87.6 Hypokalemia; E83.42 Hypomagnesemia; N18.9 Chronic kidney disease, unspecified; G24.01 Drug induced subacute dyskinesia; G20 Parkinson's disease; F02.80 Dementia in other diseases classified elsewhere, unspecified severity, without behavioral disturbance, psychotic disturbance, mood disturbance, and anxiety; E11.22 Type 2 diabetes mellitus with diabetic chronic kidney disease; D63.1 Anemia in chronic kidney disease; D50.9 Iron deficiency anemia, unspecified; K70.30 Alcoholic cirrhosis of liver without ascites; J44.9 Chronic obstructive pulmonary disease, unspecified; N40.0 Benign prostatic hyperplasia without lower urinary tract symptoms; Z86.16 Personal history of COVID-19; Z98.890 Other specified postprocedural states; Z87.891 Personal history of nicotine dependence; Z88.8 Allergy status to other drugs, medicaments and biological substances; Z79.01 Long term (current) use of anticoagulants; Z79.899 Other long term (current) drug therapy
CPT/HCPCS: 36415; 70450; 70551; 71045; 71260; 74177; 80048; 80053; 80202; 81001; 82270; 82607; 82728; 82746; 82947; 83540; 83550; 83605; 83735; 83880; 84145; 84146; 85025; 85027; 85379; 86140; 87015; 87040; 87045; 87046; 87205; 87899; 93005; 93010; 93306; 94640; 94660; 94667; 94762; 95819; 96365; 96366; 96367; 96375; 96376; 97110; 97162; 97530; 99285-25; A9270; G0378; G0480; J0456; J0696; J1815; J1940; J1953; J2001; J2250; J2370; J2704; J3370; J3475; J7030; J7050; J7120; Q9967

== ENCOUNTER 2021-05-11 14:41 | Inpatient (IN) | payer MEDICARE, OTHER ==
[~2021-05-11] VITALS: Ht 175.3 cm; Wt 86.0 kg
[~2021-05-11 14:41] MED LIST changes: +ATOR10 PO; +LEVE500 PO; -Prinivil10 MG PO
[2021-05-11 15:03] LABS: BASOPHILS ABSOLUTE AUTO 0.03 K/mm3 (0.00-0.23); BASOPHILS PERCENT AUTO 0 % (0-2); EOSINOPHILS ABSOLUTE AUTO 0.15 K/mm3 (0.00-0.68); EOSINOPHILS PERCENT AUTO 2 % (0-6); Hematocrit 26.5 % (37.0-53.0); Hemoglobin 8.8 g/dL (13.5-17.5); IMMATURE GRAN ABSOLUTE AUTO 0.02 K/mm3 (0.00-0.10); IMMATURE GRAN PERCENT AUTO 0 % (0-1); LYMPHOCYTES ABSOLUTE AUTO 1.48 K/mm3 (0.84-5.20); LYMPHOCYTES PERCENT AUTO 22 % (21-46); MONOCYTES ABSOLUTE AUTO 0.37 K/mm3 (0.16-1.47); MONOCYTES PERCENT AUTO 5 % (4-13); Mean Corpuscular HGB 29.7 pg (26.0-34.0); Mean Corpuscular HGB Conc 33.2 g/dL (31.5-36.5); Mean Corpuscular Volume 90 fL (80-100); Mean Platelet Volume 11.9 fL (9.1-12.4); NEUTROPHILS ABSOLUTE AUTO 4.75 K/mm3 (1.96-9.15); NEUTROPHILS PERCENT AUTO 70 % (41-73); Platelet Count 138 K/mm3 (150-400); RDW Coefficient Variation 13.2 % (11.7-14.2); RDW Standard Deviation 43.4 fL (35.1-46.3); Red Blood Cell Count 2.96 M/mm3 (4.30-5.90)
[2021-05-11 15:47] LABS: Albumin, Blood 3.2 g/dL (3.4-5.0); Bilirubin, Total 0.4 mg/dL (0.1-1.0); Bun/Creatinine Ratio 23.9 (12.0-20.0); Creatinine, Blood 2.01 mg/dL (0.60-1.20); Globulin, Blood 3.2 g/dL (2.2-4.0); Potassium, Blood 5.3 mmol/L (3.5-5.5); Total Protein, Blood 6.4 g/dL (6.4-8.2)
[2021-05-11] MEDS ORDERED: AUSTEDO6 MG PO (15:53)
[2021-05-11] MEDS ORDERED: ASPI81CH PO (17:05)
[2021-05-11] MEDS ORDERED: TRELEGY ELLIPT1 EACH INH (17:07)
--- NOTE | 2021-05-11 19:04 | NUR ---
ARRIVAL TO ICU AND SHIFT SUMMARY PATIENT ARRIVED TO UNIT AT 1823 FROM ER. PATIENT ALERT AND ORIENTED X 4, AFEBRILE. PATIENT IN SR WITH PVCS. HR 80S TO 90S. SBP 90S TO 1-TEENS. SCDS PLACED. STOMACH SOFT. PATIENT HAD MAROON SMEAR UPON ARRIVAL TO UNIT. PATIENT CLEANED UP AND ATTENDS PLACED. NO VOID SINCE ARRIVAL. NO PROBLEMS TO SKIN NOTED. TOENAIL AND FINGERNAILS ARE VERY LONG. NS INFUSING AT 100 MLS/ HOUR AND PROTONIX INFUSING AT 10 MLS/ HOUR. PATIENT ORIENTED TO UNIT, ROOM AND CALL SYSTEM. PATIENT'S , ANDIE, CALLED AND INFORMED OF VISITING HOURS TOMORROW. BED LOW, CALL LIGHT IN REACH. REPORT GIVEN TO ONCOMING AUTO SUSPENSION AND STEERING MECHANIC NURSE.
[2021-05-11 19:22] LABS: Hematocrit 26.4 % (37.0-53.0); Hemoglobin 8.7 g/dL (13.5-17.5)
[2021-05-12 02:59] LABS: BASOPHILS ABSOLUTE AUTO 0.02 K/mm3 (0.00-0.23); BASOPHILS PERCENT AUTO 0 % (0-2); EOSINOPHILS ABSOLUTE AUTO 0.15 K/mm3 (0.00-0.68); EOSINOPHILS PERCENT AUTO 3 % (0-6); Hemoglobin 8.7 g/dL (13.5-17.5); IMMATURE GRAN ABSOLUTE AUTO 0.02 K/mm3 (0.00-0.10); IMMATURE GRAN PERCENT AUTO 0 % (0-1); LYMPHOCYTES ABSOLUTE AUTO 1.55 K/mm3 (0.84-5.20); LYMPHOCYTES PERCENT AUTO 28 % (21-46); MONOCYTES ABSOLUTE AUTO 0.36 K/mm3 (0.16-1.47); MONOCYTES PERCENT AUTO 6 % (4-13); Mean Corpuscular HGB Conc 33.5 g/dL (31.5-36.5); Mean Corpuscular Volume 90 fL (80-100); Mean Platelet Volume 11.7 fL (9.1-12.4); NEUTROPHILS ABSOLUTE AUTO 3.52 K/mm3 (1.96-9.15); NEUTROPHILS PERCENT AUTO 63 % (41-73); Platelet Count 94 K/mm3 (150-400); RDW Coefficient Variation 13.2 % (11.7-14.2); RDW Standard Deviation 43.6 fL (35.1-46.3); White Blood Cell Count 5.62 K/mm3 (4.00-11.30)
[2021-05-12 03:15] LABS: Bun/Creatinine Ratio 23.3 (12.0-20.0); Calcium, Blood 8.5 mg/dL (8.5-10.1); Creatinine, Blood 1.93 mg/dL (0.60-1.20); Potassium, Blood 5.3 mmol/L (3.5-5.5)
--- NOTE | 2021-05-12 06:36 | NUR ---
SHIFT SUMMARY: PT AOX4, PT IS SENSITIVE AND NEEDS REPEATED EDUCATION ABOUT CARE PLAN AND TREATMENT PLAN. REFUSES CARE AND CAN BE RUDE ABOUT REQUESTS. ABLE TO MOVE ALL EXTREMITIES EQUALLY, UNABLE TO TEST GAIT. ON BEDREST, BED ALARM ON. PT REMAINS ON RA, OCCASIONAL NONPRODUCTIVE COUGH, BILAT LUNG SOUNDS COARSE WITH EXP WHEEZING, SATURATIONS IN MID TO HIGH 90's. WAS SLIGHTLY HYPOTENSIVE OVERNIGHT, MD WAS NOTIFIED AT BEDSIDE. PT INCONTINENT OF BOWEL AND URINE, NO BM OVERNIGHT, LOW FREQUENT URINE OUTPUT. MD DID STOP BY TO NOTIFY PT OF CARE PLAN REGARDING COLONOSCOPY AND NUTRITION STATUS. PT ON FULL LIQUID DIET. PT RECEIVED 1 UNIT OF PRBC, HGB IMPROVED, PER MD GIVE NEXT UNIT OF BLOOD IF HGB LESS THAN 7. PT AWARE COVID TEST NEEDED FOR PROCEDURE, REFUSED SWAB AT THE MOMENT. WILL NOTIFY ONCOMING DAY SHIFT NURSE TO TRY AGAIN LATER THIS MORNING.
[2021-05-12 09:20] LABS: Hematocrit 26.6 % (37.0-53.0); Hemoglobin 8.9 g/dL (13.5-17.5)
--- NOTE | 2021-05-12 11:39 | NUR ---
ASSUMED CARE 0800 PATIENT HAS BEEN IN BED RESTING OVER NIGHT BUT COMPLAINS HE IS TIRED AND HAS BEEN BOTHERED EVERY FEW HRS. PATIENT VS STABLE HOWEVER HE IS A 1 DEGREE HEART BLOCK WITH A SOFT BP MAP IS HOVERING AT 65. NS STILL GOING AT 100 MLS AN HOUR TO HIS ONE IV IN HIS RIGHT FORARM. HE VOIDED TO URINATE WITH AIDE FROM NURSE HOLDING THE URINAL HE SCREAMED WHEN A LIGHT TOUCH WAS GIVEN TO THE HEAD OF HIS PENIS WHEN CLEANING POST VOID. HIS URINE IS CLOUDY AND CONSENTRATED. WILL CONTINUE CARE FOR THE DAY.
--- NOTE | 2021-05-12 11:42 | NUR ---
1130, PATIENT BP HAS BEEN SOFTER WITH SBP IN THE 80'S AND MAP 55-60. PLACED A NEW IV TO RIGHT FORARM AND CALLED DR MADRID FOR A NS BOLUS OF 500ML. WILL CALL HER BACK IN 2 HOURS WITH BP RESULTS AND URINE OUTPUT IF ANY. PATIENT A SMALL AMOUNT OF HIS BREAKFAST THIS AM BUT STATED HE DOESN'T HAVE AN APPETITE FOR PUREE FOOD LIKE THEY WERE GIVING HIM AT [facility]. WILL FOLLOW UP WITH CARE DIRECTED.
[2021-05-12 13:32] LABS: Source, Urine Foley catheter
[2021-05-12 13:51] LABS: BASOPHILS ABSOLUTE AUTO 0.02 K/mm3 (0.00-0.23); BASOPHILS PERCENT AUTO 0 % (0-2); EOSINOPHILS ABSOLUTE AUTO 0.09 K/mm3 (0.00-0.68); EOSINOPHILS PERCENT AUTO 2 % (0-6); Hematocrit 25.4 % (37.0-53.0); Hemoglobin 8.4 g/dL (13.5-17.5); IMMATURE GRAN ABSOLUTE AUTO 0.02 K/mm3 (0.00-0.10); IMMATURE GRAN PERCENT AUTO 0 % (0-1); LYMPHOCYTES ABSOLUTE AUTO 1.13 K/mm3 (0.84-5.20); LYMPHOCYTES PERCENT AUTO 21 % (21-46); MONOCYTES ABSOLUTE AUTO 0.37 K/mm3 (0.16-1.47); MONOCYTES PERCENT AUTO 7 % (4-13); Mean Corpuscular HGB 30.1 pg (26.0-34.0); Mean Corpuscular HGB Conc 33.1 g/dL (31.5-36.5); Mean Corpuscular Volume 91 fL (80-100); NEUTROPHILS ABSOLUTE AUTO 3.81 K/mm3 (1.96-9.15); NEUTROPHILS PERCENT AUTO 70 % (41-73); Platelet Count 87 K/mm3 (150-400); RDW Coefficient Variation 13.3 % (11.7-14.2); RDW Standard Deviation 45.2 fL (35.1-46.3); Red Blood Cell Count 2.79 M/mm3 (4.30-5.90); White Blood Cell Count 5.44 K/mm3 (4.00-11.30)
[2021-05-12 13:53] LABS: Bilirubin, Urine Neg (Neg); Blood, Urine 2+ (Neg); Glucose Qualitative, Urine Neg (Neg); Ketones, Urine Neg (Neg); Leukocyte Esterase, Urine 3+ (Neg); Nitrite, Urine Neg (Neg); Protein, Urine 2+ (Neg); Urobilinogen, Urine NORM (Normal)
[2021-05-12 14:11] LABS: Appearance, Urine Hazy (Clear); Color, Urine Pale Yellow (P-Yellow)
[2021-05-12 14:12] LABS: Bacteria Few /hpf; Squamous Epithelial Cells Few /hpf (Few)
[2021-05-12 14:56] LABS: Hematocrit 24.9 % (37.0-53.0); Hemoglobin 8.2 g/dL (13.5-17.5)
--- NOTE | 2021-05-12 15:43 | NUR ---
Advanced Directive request. Waited till Pt. and spouse were both present. I was welcomed. Pt. was getting breathing treatments while I visited. Pt. was alert but was weak and pretty immobile. Introduced the Advanced Directive material. Spouse displayed the most evidence of being engaged. SPouse agreed that they would take some time to look at the material. Pt. and spouse verbalized gratitude for the spiritual care visit.
[2021-05-12 17:00] LABS: Influenza A, PCR NEGATIVE (NEGATIVE); Influenza B, PCR NEGATIVE (NEGATIVE); Resp Syncytial Virus, PCR NEGATIVE (NEGATIVE); SARS-Cov-2 (COVID-19) PCR, MMC NEGATIVE (NEGATIVE)
--- NOTE | 2021-05-12 18:40 | NUR ---
END OF SHIFT NOTE: PAZ HAS HAD A MODERATELY GOOD DAY HOWEVER HIS BP HAS BEEN LOW ALL DAY. DR FRIAS HAS BEEN CALLED A FEW TIMES TODAY TO KEEP ABREAST TO HIS BP AND H+H LEVELS. SHE HAS ORDERED A 2 L OF FLUID OVER THE DAY AND PATIENT IS NOW ON THE 1 LITER AT 250 ML AN HR X 4 HR THEN NS IS TO GO BACK TO 100ML/HR. HIS HEART RATE STARTED 1 DEGREE BLOCK PULSE IN 80-90'S THEN HIS HEART RATE HAS SLOWLY GONE UP TO LOW 100'S AND HOVERED THERE, SINUS TACH. PAZ'S WAS IN TODAY FOR FEW HOURS FOR A VISIT. HIS BLOOD SUGAR HAS INCREASED THIS AFTERNOON TO MID 200'S AND COVERAGE WAS GIVEN. HE WAS VERY SENSITVE TO HIS CHANTAL CARE THIS AM BUT HE HAS LET RN DO CHANTAL CARE S/P VOIDS IN URINAL AND WHEN HE ALLOWED HIS BRIEF TO BE CHANGED THIS EVENING. THERE HAS BEEN NO STOOL OR RECTAL BLOOD TODAY. HEMAGLOBIN IS CURRENTLY 8.2 AND H+H IS CHECKED EVERY 4 HRS. HE ALLOWED THE RN TO GET THE COVID TEST COMPLETED, AWAITING RESULTS. PLAN IS FOR HIM TO HAVE AN ENDOSCOPY TOMORROW BY DR CHRISTOPHER. WILL CONTINUE CARE AND GIVE REPORT TO ONCOMING SHIFT.
[2021-05-12 21:10] LABS: Hematocrit 23.6 % (37.0-53.0); Hemoglobin 7.6 g/dL (13.5-17.5)
[2021-05-13 03:53] LABS: BASOPHILS ABSOLUTE AUTO 0.01 K/mm3 (0.00-0.23); BASOPHILS PERCENT AUTO 0 % (0-2); EOSINOPHILS ABSOLUTE AUTO 0.11 K/mm3 (0.00-0.68); EOSINOPHILS PERCENT AUTO 3 % (0-6); Hematocrit 23.7 % (37.0-53.0); Hemoglobin 7.6 g/dL (13.5-17.5); IMMATURE GRAN ABSOLUTE AUTO 0.01 K/mm3 (0.00-0.10); IMMATURE GRAN PERCENT AUTO 0 % (0-1); LYMPHOCYTES ABSOLUTE AUTO 0.98 K/mm3 (0.84-5.20); LYMPHOCYTES PERCENT AUTO 23 % (21-46); MONOCYTES PERCENT AUTO 7 % (4-13); Mean Corpuscular HGB Conc 32.1 g/dL (31.5-36.5); Mean Corpuscular Volume 91 fL (80-100); Mean Platelet Volume 11.3 fL (9.1-12.4); NEUTROPHILS ABSOLUTE AUTO 2.84 K/mm3 (1.96-9.15); NEUTROPHILS PERCENT AUTO 67 % (41-73); Platelet Count 88 K/mm3 (150-400); RDW Coefficient Variation 13.2 % (11.7-14.2); RDW Standard Deviation 43.6 fL (35.1-46.3); Red Blood Cell Count 2.62 M/mm3 (4.30-5.90); White Blood Cell Count 4.25 K/mm3 (4.00-11.30)
[2021-05-13 04:05] LABS: Bun/Creatinine Ratio 20.4 (12.0-20.0); Calcium, Blood 8.7 mg/dL (8.5-10.1); Creatinine, Blood 1.47 mg/dL (0.60-1.20); Potassium, Blood 5.1 mmol/L (3.5-5.5)
--- NOTE | 2021-05-13 06:17 | NUR ---
Shift Summary: Pt AOx4, was not able to get any sleep tonight due frequency and urgency in urination. Expressed frustration with UTI, will recommend to oncoming day shift RN to consult with MD for antibiotics or pain medication to alleviate pain and discomfort. Pt able to move all ext, equally and strong. Remains on RA, lung sounds are coarse, has an occasional cough. BP remains stable overnight; afebrile. Pt is incontinent of bowel and urine. Able to use call light for additional help with urinal, does report of pain, frequency and urgency with urination. Urine appears cloudy with a foul odor, pt is aware of UTI diagnosis. Water and ice chip only diet for colonoscopy procedure later in the afternoon. Pt did have 1x BM overnight, does not appear bloody or black Pt was suppose to start Suprep bowel prep kit for colonoscopy later in the afternoon. Contacted pharmacy regarding medication kit, unfortunately, hospital was out of prep kit which results in a delay for admistering Suprep due to delivery issues with supplier. Will notify oncoming day shift nurse. Infusions: normal saline
--- NOTE | 2021-05-13 09:28 | NUR ---
AM NOTE... ASSUMED CARE OF PT AT 0700, THE PT IS A&Ox4. THE PT IS NPO EXCECPT WATER AND ICE CHIPS FOR A COLONOSCOPY SCHEDULED FOR THIS AFTERNOON. THE PT'S COLON PREP WAS NOT AVAILABLE FROM PHARMACY UNTIL 0800 THE PREP WAS STARTED AT 0812. THE PT IS IN SR W/FRIST DEGREE AND PVCs IN THE 90'S-100'S. THE PT'S BP IS STABLE. NO EDEMA NOTED ON ASSESSMENT. THE PT IS ON RA WITH O2 SATS >95% L/S COARSE T/O RR IN THE 20'S. THE PT'S BT PRESENT AND HYPOACTIVE,ABD IS SOFT AND NONTENDER TO PALPATION. THE PT IS INCONT OF BOWEL AND SOMETIMES BLADDER. THE PT C/O PAIN TO HIS PENIS DURING URINATION. A CONDOM CATH WAS PLACED ON THE PT TO HELP PREVENT SKIN BREAKDOWN AND COMFORT FOR THE PT. CALL LIGHT IN REACH WILL CONTINUE TO MONITOR.
--- NOTE | 2021-05-13 17:52 | NUR ---
SHIFT SUMMARY.... NO ACUTE NEGATIVE CHANGES NOTED THIS SHIFT. THE PT'S VS HAVE BEEN STABLE, THE PT'S HR DOSE INCREASE TO THE 120'S WITH MOVING IN BED BUT WILL DECREASE BACK TO THE 90'S-100'S WITH REST. THE PT'S HAS BEEN AT THE BED SIDE DURING VISITNG HOURS. THE PT HAS BEEN INCONT OF URINE AND STOOL MOST OF THIS SHIFT, A RECTAL TUBE WAS PLACED WHILE THE PT WAS TAKING BOWEL PREP FOR THE COLONOSCOPY THIS EVENING. THE PT WAS TAKEN TO DAY SURGERY AT 1750, THE IS WAITING IN THE ROOM TO SPEAK WITH THE DOCTOR.
--- NOTE | 2021-05-13 18:06 | NUR ---
05/13/21 1806 Tanya Broderick SCOPE PURPLE/RED [id number] CARE BY FOR TIVA CARE. SEE PAPER ANESTHESIA RECORD.
--- NOTE | 2021-05-14 05:45 | NUR ---
SHIFT SUMMARY: Pt AOx4, was pleasant and cooperative overnight. Reminded and educated pt regarding treatment and care plan. Strong and equal movement on all extremities. Refused to ambulate or dangle in bed. Independently repositions self in bed, does not want any additional help with repositioning. Remains on RA, lungs have improved; bilateral lung sounds are clear. No cough. BP stable. Pt did have an episode of AFIB converted right back to SR, pt has frequent PVCs. Afebrile. Pulses are palpable. On water and ice chip diet for repeat colonoscopy later this afternoon. Pt still complainig of pain when trying to urinate, ruiz catheter placed this morning. Pt immediately had 700 mL of urine out, another urine culture sent per protocol. Urine had foul odor, cloudy with sediments. 2x BM overnight, stool did have trace of bright red blood. Incontinent of stool and urine. Educated pt regarding skin care and pressure sores if left soiled for longer period of time. Continue to reinforce. Infusions: normal saline.
[2021-05-14 08:19] LABS: Hematocrit 26.5 % (37.0-53.0); Hemoglobin 8.6 g/dL (13.5-17.5)
[2021-05-14 08:36] LABS: Albumin, Blood 2.8 g/dL (3.4-5.0); Anion Gap 6 mmol/L (6-16); Blood Urea Nitrogen 17 mg/dL (8-24); Bun/Creatinine Ratio 13.1 (12.0-20.0); CO2, Blood 21 mmol/L (21-32); Calcium, Blood 8.7 mg/dL (8.5-10.1); Chloride, Blood 111 mmol/L (98-108); Glomerular Filtration Rate 54 (60-); Glucose, Blood 128 mg/dL (70-99); Phosphorus, Blood 3.9 mg/dL (2.5-4.9); Potassium, Blood 4.7 mmol/L (3.5-5.5); Sodium, Blood 138 mmol/L (136-145)
--- NOTE | 2021-05-14 12:14 | NUR ---
REASSESSMENT PT HAS SPENT THE MORNING NAPPING AND DRINKING HIS GOLYTELY. HE IS ABOUT [address]OUGH THE JUG, HAVING LIQUID STOOLS WITH SOME SCATTERED DEBRIS IN IT. BROWN TO YELLOW IN COLOR WITH A SMALL AMT OF RED BLOOD CLOTS. PT REMAINS ALERT AND ORIENTED, CLEAR LUNGS, RA, SR, BP STABLE. PATEL DRAINING. CONTINUING TO MONITOR.
[2021-05-14 13:27] LABS: Mean Platelet Volume 12.5 fL (9.1-12.4); Platelet Count 92 K/mm3 (150-400)
--- NOTE | 2021-05-14 16:59 | NUR ---
SHIFT SUMMARY PT WAS ABLE TO GET ABOUT 3/4 OF THE GOLYTELY DOWN TODAY BEFORE HE NEEDED TO BE NPO. PT'S STOOL IS CLEAR APPEARING WITH A LITTLE DEBRIS. LUNGS CLEAR, RA, SR, BP STABLE. PATEL WITH 700ML OF YELLOW, CLOUDY URINE. PT'S CAME THIS AFTERNOON AND WAS UPDATED. AWAITING COLONOSCOPY THIS EVENING. CONTINUING TO MONITOR.
--- NOTE | 2021-05-14 19:29 | NUR ---
DURING REPORT DAY SURGERY CAME TO TAKE PATIENT TO ENDOSCOPY, ACCOMPANIED HIM TO DEPARTMENT.
--- NOTE | 2021-05-14 19:47 | NUR ---
05/14/211946 Mar Vizcaino See Anesthesia record, DR. BLANC. History, Chart, Medications and Allergies reviewed before start of procedure. MONITOR INTACT WITH CONTINUOUS PULSE OXIMETRY AND INTERMITTENT BP. O2 VIA N/C INTACT THROUGHOUT SEDATION/PROCEDURE.
--- NOTE | 2021-05-15 01:10 | NUR ---
WHEN PT RETURNED FROM DAY SURGERY POST COLONOSCOPY HE WAS AWAKE AND ALERT, TALKING WITH STAFF AND HIS . HE DENIED ANY DISCOMFORT OR NEEDS. HIS PATEL DRAINING TO GRAVITY WITH GOOD URINE OUTPUT, CLEAR YELLOW. HE SAID GOOD NIGHT TO HIS AND CAME IN TO SEE THE PATIENT. DISCUSSED WITH THE PT THE RESULTS OF THE COLONOSCOPY. PT THEN CALLED HIS . HE STATED HE WAS GOOD AND HAD NO COMPLAINTS. HE TRIED ONE OF THE SNACKS HIS BOUGHT FOR HIM. HE IS NOW SLEEPING, VITAL SIGNS GOOD.
[2021-05-15 03:51] LABS: BASOPHILS ABSOLUTE AUTO 0.02 K/mm3 (0.00-0.23); BASOPHILS PERCENT AUTO 1 % (0-2); EOSINOPHILS ABSOLUTE AUTO 0.18 K/mm3 (0.00-0.68); EOSINOPHILS PERCENT AUTO 4 % (0-6); Hematocrit 23.8 % (37.0-53.0); Hemoglobin 7.7 g/dL (13.5-17.5); IMMATURE GRAN ABSOLUTE AUTO 0.02 K/mm3 (0.00-0.10); IMMATURE GRAN PERCENT AUTO 1 % (0-1); LYMPHOCYTES ABSOLUTE AUTO 1.03 K/mm3 (0.84-5.20); LYMPHOCYTES PERCENT AUTO 25 % (21-46); MONOCYTES ABSOLUTE AUTO 0.28 K/mm3 (0.16-1.47); MONOCYTES PERCENT AUTO 7 % (4-13); Mean Corpuscular HGB 29.2 pg (26.0-34.0); Mean Corpuscular HGB Conc 32.4 g/dL (31.5-36.5); Mean Corpuscular Volume 90 fL (80-100); Mean Platelet Volume 11.7 fL (9.1-12.4); NEUTROPHILS ABSOLUTE AUTO 2.67 K/mm3 (1.96-9.15); NEUTROPHILS PERCENT AUTO 64 % (41-73); Platelet Count 83 K/mm3 (150-400); RDW Coefficient Variation 13.4 % (11.7-14.2); RDW Standard Deviation 44.5 fL (35.1-46.3); Red Blood Cell Count 2.64 M/mm3 (4.30-5.90)
[2021-05-15 04:12] LABS: Anion Gap 5 mmol/L (6-16); Blood Urea Nitrogen 11 mg/dL (8-24); CO2, Blood 22 mmol/L (21-32); Calcium, Blood 8.2 mg/dL (8.5-10.1); Chloride, Blood 111 mmol/L (98-108); Glomerular Filtration Rate >60 (60-); Glucose, Blood 181 mg/dL (70-99); Potassium, Blood 4.3 mmol/L (3.5-5.5); Sodium, Blood 138 mmol/L (136-145)
--- NOTE | 2021-05-15 19:38 | NUR ---
SHIFT SUMMARY PT A&O X4. VSS. SPO2 > 92% ON RA. PT NPO FOR ABD CT W/ CONTRAST THIS AM, THEN ABLE TO RESUME DIET. PT VSS. SPO2 > 92% ON RA. MONITOR SHOWING ST, HR 110's. PATEL CATH PATENT & DRAINING. W/ ORDER TO DC PATEL TODAY, PT REQUESTING PATEL TO REMAIN IN PLACE FOR "ONE MORE DAY." MD ALVARADO W/ PATEL CATH REMAINING IN PLACE FOR ONE MORE DAY. PT W/ ORDER FOR NS GTT TO BE INFUSING, PLACED ON STANDBY FOR PROCEDURE THIS AM, THEN UNFORTUNATELY NOT RESUMED. PT TOLERATING PO INTAKE. REPORT GIVEN TO PROSTHODONTIST/OWNER RN.
--- NOTE | 2021-05-15 23:20 | NUR ---
PT IS A&OX3. IV PATENT X 2 IN RIGHT ARM. IV FLUIDS INFUSING WITHOUT DIFFICUTLY. PT COMPLAINS OF CHRONIC BACK PAIN, STATES HE DOES NOT TAKE ANY PAIN MEDICATION FOR PAIN CONTROL, MANAGES WITH POSITION. PT ASSISTED TO REPOSITION FOR COMFORT. SAFETY MEASURES IN PLACE.
[2021-05-16 03:44] LABS: BASOPHILS ABSOLUTE AUTO 0.01 K/mm3 (0.00-0.23); BASOPHILS PERCENT AUTO 0 % (0-2); EOSINOPHILS ABSOLUTE AUTO 0.12 K/mm3 (0.00-0.68); EOSINOPHILS PERCENT AUTO 3 % (0-6); Hematocrit 23.3 % (37.0-53.0); Hemoglobin 7.6 g/dL (13.5-17.5); IMMATURE GRAN ABSOLUTE AUTO 0.02 K/mm3 (0.00-0.10); IMMATURE GRAN PERCENT AUTO 1 % (0-1); LYMPHOCYTES ABSOLUTE AUTO 0.84 K/mm3 (0.84-5.20); LYMPHOCYTES PERCENT AUTO 22 % (21-46); MONOCYTES ABSOLUTE AUTO 0.24 K/mm3 (0.16-1.47); MONOCYTES PERCENT AUTO 6 % (4-13); Mean Corpuscular HGB 29.7 pg (26.0-34.0); Mean Corpuscular HGB Conc 32.6 g/dL (31.5-36.5); Mean Corpuscular Volume 91 fL (80-100); Mean Platelet Volume 12.1 fL (9.1-12.4); NEUTROPHILS ABSOLUTE AUTO 2.65 K/mm3 (1.96-9.15); NEUTROPHILS PERCENT AUTO 68 % (41-73); Platelet Count 76 K/mm3 (150-400); RDW Coefficient Variation 13.4 % (11.7-14.2); RDW Standard Deviation 44.9 fL (35.1-46.3); Red Blood Cell Count 2.56 M/mm3 (4.30-5.90); White Blood Cell Count 3.88 K/mm3 (4.00-11.30)
[2021-05-16 04:11] LABS: Bun/Creatinine Ratio 6.7 (12.0-20.0); Calcium, Blood 8.2 mg/dL (8.5-10.1); Creatinine, Blood 1.19 mg/dL (0.60-1.20); Potassium, Blood 4.1 mmol/L (3.5-5.5)
--- NOTE | 2021-05-16 06:10 | NUR ---
PT HAS BEEN RESTING COMFORTABLY IN BED THROUGHOUT THE NIGHT, REPOSITIONS SELF FOR COMFORT. TELEMETRY REMAINS IN SINUS TACH IN THE LOW 100'S. DENIES NEEDS AT THIS TIME. SAFETY MEASURES IN PLACE.
--- NOTE | 2021-05-16 18:19 | NUR ---
SHIFT SUMMARY PT A&O X4. VSS. SPO2 > 92% ON RA. MONITOR SHOWING ST, HR 100-110's, UP TO 130's W/ SITTING UP TO EDGE OF BED &/OR AMBULATION IN RM. PATEL CATH DC'd THIS AFTERNOON W/ MINIMAL POST VOID URINATION. PT FIRST VOID OF APPROX 5 MLS. BLADDER SCAN THEN DONE SHOWING 377 MLS. PT REPORTS PREVIOUS PAIN W/ INABILITY TO VOID PRIOR TO PATEL CATH INSERTION. PT CURRENTLY REPORTING "AT LEAST THIS TIME I DON'T HAVE ANY PAIN. I DON'T FEEL ANY URGE EITHER." PT JUST REPORTS "PRESSURE" WHEN PALPATING BLADDER REGION. PT DETERMINED TO VOID, THEN HOLDING THE URINAL IN PLACE FOR ANOTHER LONG SPAN OF TIME THEN W/ 15 ML VOID. CALL OUT TO MD FRIAS TO UPDATE ON STATUS.
--- NOTE | 2021-05-16 21:29 | NUR ---
PT IS A&OX4. PATEL CATHETER REMOVED ON DAY SHIFT. PT REPORTS HE DOES NOT FEEL THE URGE TO VOID. PT STANDING AT BEDSIDE, RUNNING WATER, PLACED HAND IN WARM WATER, GENTLE PRESSURE APPLIED TO AREA AROUND BLADDER. PT UNABLE TO VOID. RETURNED TO BED, BALDDER SCANNED. AFTER BLADDER SCANNING PT VOIDED SMALL AMOUNT OF CLEAR, YELLOW URINE. WILL CONTINUE TO MONITOR AND ENCOURAGE VOIDING.
--- NOTE | 2021-05-16 22:34 | NUR ---
PT ABLE TO VOID 175 ML CLEAR, YELLOW URINE. VOIDS HAVE PROGRESSIVELY INCREASED SINCE PATEL CATHETER REMOVED. PT CONTINUES TO DENY DISCOMFORT. WILL MONITOR.
[2021-05-17 03:41] LABS: BASOPHILS ABSOLUTE AUTO 0.02 K/mm3 (0.00-0.23); BASOPHILS PERCENT AUTO 1 % (0-2); EOSINOPHILS ABSOLUTE AUTO 0.13 K/mm3 (0.00-0.68); EOSINOPHILS PERCENT AUTO 4 % (0-6); Hematocrit 24.1 % (37.0-53.0); Hemoglobin 7.7 g/dL (13.5-17.5); IMMATURE GRAN ABSOLUTE AUTO 0.03 K/mm3 (0.00-0.10); IMMATURE GRAN PERCENT AUTO 1 % (0-1); LYMPHOCYTES ABSOLUTE AUTO 0.85 K/mm3 (0.84-5.20); LYMPHOCYTES PERCENT AUTO 25 % (21-46); MONOCYTES ABSOLUTE AUTO 0.25 K/mm3 (0.16-1.47); MONOCYTES PERCENT AUTO 7 % (4-13); Mean Corpuscular HGB 29.7 pg (26.0-34.0); Mean Corpuscular Volume 93 fL (80-100); Mean Platelet Volume 11.7 fL (9.1-12.4); NEUTROPHILS ABSOLUTE AUTO 2.09 K/mm3 (1.96-9.15); NEUTROPHILS PERCENT AUTO 62 % (41-73); Platelet Count 79 K/mm3 (150-400); RDW Coefficient Variation 13.3 % (11.7-14.2); RDW Standard Deviation 45.4 fL (35.1-46.3); Red Blood Cell Count 2.59 M/mm3 (4.30-5.90); White Blood Cell Count 3.37 K/mm3 (4.00-11.30)
[2021-05-17 03:57] LABS: Anion Gap 8 mmol/L (6-16); Blood Urea Nitrogen 6 mg/dL (8-24); CO2, Blood 20 mmol/L (21-32); Calcium, Blood 8.4 mg/dL (8.5-10.1); Chloride, Blood 111 mmol/L (98-108); Creatinine, Blood 0.99 mg/dL (0.60-1.20); Glomerular Filtration Rate >60 (60-); Glucose, Blood 174 mg/dL (70-99); Potassium, Blood 3.6 mmol/L (3.5-5.5); Sodium, Blood 139 mmol/L (136-145)
--- NOTE | 2021-05-17 07:42 | NUR ---
ASSUMED CARE OF PT THIS AM AFTER RECEIVING REPORT FROM NOC SHIFT RN. PT A&Ox4, RESTING IN BED. UPON ENTERING ROOM, PT REQUESTS TO NOT BE DISTURBED, STATES "I NEED TO SLEEP, I WAS UP UNTIL 4AM". PT AGREES TO VS (STABLE) AND ASSESSMENT. PT REQUESTS MEAL TRAY TO BE SET ASIDE FOR LATER. LIGHTS TURNED LOW, CALL LIGHT WITHIN REACH.
[2021-05-17] MEDS ORDERED: VITAMIN C PO (11:57)
[2021-05-17] MEDS ORDERED: FERSU300 PO (11:58)
[2021-05-17] MEDS ORDERED: PANT40 PO (11:58)
[2021-05-17] MEDS ORDERED: LEVFLO500 PO (11:58)
[2021-05-17] MEDS ORDERED: XARELTO20 MG PO (12:10)
--- NOTE | 2021-05-17 12:55 | NUR ---
PT HAS BEEN CLEARED FOR DISCHARGE. IV ACCESS DC'd WNL. PT AND SPOUSE PROVIDED WITH DC PAPERWORK AND INSTRUCTIONS. ALL QUESTIONS HAVE BEEN ANSWERED. PT ESCORTED FROM UNIT VIA W/C AND ASSISTED INTO CAR, PT ABLE TO STAND AND TRANSFER WITH MINIMAL ASSISTANCE.
[2021-10-19] MEDS ORDERED: K-Phos Origina500 MG PO (12:22)
== END 2021-05-17 12:48 | disposition home or self-care (01) | DRG 393 ==
LOC: ER 14:41 → PCU 17:45 → ICUW 17:45 → PCU 05-15 03:53
PROVIDERS: Emergency Medicine; Internal Medicine; Internal Medicine Gastroenterology; ADMIT Internal Medicine
PROC: 0DJ08ZZ Inspection of Upper Intestinal Tract, Via Natural or Artificial Opening Endoscopic (ICD-10-PCS; 2021-05-13)
PROC: 0DBP8ZZ Excision of Rectum, Via Natural or Artificial Opening Endoscopic (ICD-10-PCS; 2021-05-14)
PROC: 0DBK8ZX Excision of Ascending Colon, Via Natural or Artificial Opening Endoscopic, Diagnostic (ICD-10-PCS; principal; 2021-05-14 16:00)
PROC: 0DBM8ZZ Excision of Descending Colon, Via Natural or Artificial Opening Endoscopic (ICD-10-PCS; 2021-05-14 16:00)
PROC: 0DBL8ZZ Excision of Transverse Colon, Via Natural or Artificial Opening Endoscopic (ICD-10-PCS; 2021-05-14 16:00)
PROC: 0DBN8ZZ Excision of Sigmoid Colon, Via Natural or Artificial Opening Endoscopic (ICD-10-PCS; 2021-05-14 16:00)
DX: K64.8 Other hemorrhoids (principal); J18.9 Pneumonia, unspecified organism; N17.9 Acute kidney failure, unspecified; E87.1 Hypo-osmolality and hyponatremia; N39.0 Urinary tract infection, site not specified; I48.20 Chronic atrial fibrillation, unspecified; Z20.822 Contact with and (suspected) exposure to COVID-19; K64.4 Residual hemorrhoidal skin tags; E11.9 Type 2 diabetes mellitus without complications; B96.20 Unspecified Escherichia coli [E. coli] as the cause of diseases classified elsewhere; Z86.16 Personal history of COVID-19; K63.9 Disease of intestine, unspecified; E86.9 Volume depletion, unspecified; K63.5 Polyp of colon; I10 Essential (primary) hypertension; D69.6 Thrombocytopenia, unspecified; J44.9 Chronic obstructive pulmonary disease, unspecified; Z28.21 Immunization not carried out because of patient refusal; F10.20 Alcohol dependence, uncomplicated; K21.9 Gastro-esophageal reflux disease without esophagitis; G40.909 Epilepsy, unspecified, not intractable, without status epilepticus; N40.0 Benign prostatic hyperplasia without lower urinary tract symptoms; K70.30 Alcoholic cirrhosis of liver without ascites; Z88.8 Allergy status to other drugs, medicaments and biological substances; Z79.4 Long term (current) use of insulin; Z79.899 Other long term (current) drug therapy; Z98.890 Other specified postprocedural states; Z79.01 Long term (current) use of anticoagulants; Z87.891 Personal history of nicotine dependence; Z79.82 Long term (current) use of aspirin
CPT/HCPCS: 0241U; 36415; 36430; 51701; 51702; 71045; 71260; 74177; 80048; 80053; 80069; 81001; 82272; 82378; 82947; 83605; 83880; 84145; 85014; 85018; 85025; 85049; 86850; 86900; 86901; 86923; 87077; 87086; 87186; 88305; 93005; 93010; 94640; 94664; 94667; 94668; 94760; 96374; 99285-25; A9270; C9113; J1953; J2370; J2405; J2704; J7030; J7040; J7120; P9016; Q9967

== ENCOUNTER 2021-12-17 18:22 | Emergency (ER) | payer MEDICARE ==
[~2021-12-17] VITALS: Ht 172.7 cm; Wt 83.9 kg
[~2021-12-17 18:22] MED LIST changes: +ASPI81CH PO; +FERSU300 PO; +K-Phos Origina500 MG PO; +LEVFLO500 PO; +TRELEGY ELLIPT1 EACH INH; +VITAMIN C PO
[2021-12-17 19:47] LABS: BASOPHILS ABSOLUTE AUTO 0.04 K/mm3 (0.00-0.23); BASOPHILS PERCENT AUTO 1 % (0-2); EOSINOPHILS ABSOLUTE AUTO 0.02 K/mm3 (0.00-0.68); EOSINOPHILS PERCENT AUTO 0 % (0-6); Hematocrit 33.1 % (37.0-53.0); IMMATURE GRAN ABSOLUTE AUTO 0.06 K/mm3 (0.00-0.10); IMMATURE GRAN PERCENT AUTO 1 % (0-1); LYMPHOCYTES PERCENT AUTO 26 % (21-46); MONOCYTES ABSOLUTE AUTO 0.37 K/mm3 (0.16-1.47); MONOCYTES PERCENT AUTO 6 % (4-13); Mean Corpuscular HGB 32.1 pg (26.0-34.0); Mean Corpuscular HGB Conc 33.2 g/dL (31.5-36.5); Mean Corpuscular Volume 97 fL (80-100); Mean Platelet Volume 12.3 fL (9.1-12.4); NEUTROPHILS ABSOLUTE AUTO 3.75 K/mm3 (1.96-9.15); NEUTROPHILS PERCENT AUTO 66 % (41-73); Platelet Count 155 K/mm3 (150-400); RDW Coefficient Variation 17.5 % (11.7-14.2); RDW Standard Deviation 62.3 fL (35.1-46.3); Red Blood Cell Count 3.43 M/mm3 (4.30-5.90); White Blood Cell Count 5.74 K/mm3 (4.00-11.30)
[2021-12-17] MEDS ORDERED: CEPH500 PO (20:09)
== END 2021-12-17 20:10 | disposition home or self-care (01) ==
LOC: ER 18:22
PROVIDERS: Emergency Medicine
DX: S02.2XXA Fracture of nasal bones, initial encounter for closed fracture (principal); F10.129 Alcohol abuse with intoxication, unspecified; E11.9 Type 2 diabetes mellitus without complications; I48.91 Unspecified atrial fibrillation; J44.9 Chronic obstructive pulmonary disease, unspecified; Z87.891 Personal history of nicotine dependence; Z88.8 Allergy status to other drugs, medicaments and biological substances; Z79.899 Other long term (current) drug therapy; Z79.82 Long term (current) use of aspirin; W18.30XA Fall on same level, unspecified, initial encounter
CPT/HCPCS: 12011; 70450; 70486; 72125; 85025; 86850; 86900; 86901; 93005; 93010; 99284-25; J7030